=== PATIENT | female | born 1965 | race Caucasian/White ===

== ENCOUNTER 2024-02-17 15:10 | Outpatient (AMB) | payer OTHER, SELFPAY ==
--- NOTE | 2024-02-17 15:13 | A.OFFPC_ITS ---
Vital Signs 02/17/24 15:24 Height 5 ft 10 in Weight 230 lb 4 oz BMI 33.0 BP 112/68 Blood Pressure Location Rt brachial Position Sitting Respiration 16 Pulse 63 Pulse Source Pulse Oximeter Temp 98.2 F Temp Source Oral Pulse Oximetry (%) 97 Oxygen Delivery Method Room Air Intake Visit Reasons: Establish Care Intake Note: patient here for new patient visit she just moved out here. 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 Required: No Is last menstrual period known: No Post menopausal: No Patient : No Allergies tetracycline Allergy (Severe, Verified 02/17/24 15:19) Anaphylaxis oxycodone Adverse Reaction (Intermediate, Verified 02/17/24 15:19) Dizziness Tobacco use date assessed: 02/17/24 Dental Screening Dental Screen Date: 02/17/24 Did you have a dental visit in the last 12 months?: Yes Did you have a dental problem in the last 6 months where you did not have access to dental care?: No Was dental information given to patient?: Patient has dentist HPI HPI Comments History of Present Illness Details This is a 58-year-old female with a past medical history of postsurgical hypothyroidism, decreased white blood cell count and prediabetes presenting to [facility]. 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 She moved to [place], [place] from [facility] last fall with her who is in the . Hypothyroidism-patient had thyroidectomy in 2020 for nodules. She does not have a history of thyroid cancer. She has on Synthroid a 125 mcg once daily. Obt aining the prescription in [place] was never a problem. She could not tolerate levothyroxine because it caused fluctuating TSH levels. She needs a prior authorization for Synthroid. TSH 0.072-reviewed on patient's portal from another office recently. Decreased WBC-her provider in [place] said she has had mildly decreased white blood cells for awhile, and she was not concerned about it. Recent WBC 3.4. She notes she has gotten pneumonia about once a year when she was living in [place]. She says this is because of the tendency of all the air pollution to settle in this area. She did not have pneumonia since relocating to [place] last year. No other infections. Prediabetes-patient endorses a history of this. Recent fasting glucose 105. [facility] Medical History (Updated 02/17/24 @ 16:16 by AMANUEL Vicente) History of pneumonia Post-surgical hypothyroidism WBC decreased Prediabetes Surgical History (Updated 02/17/24 @ 16:16 by AMANUEL Vicente) History of thyroidectomy History of knee surgery Family History (Updated 02/17/24 @ 15:34 by Caroline Garsia) Father Diabetes Cardiovascular disease Family/Other Diabetes High blood pressure Paternal Grandmother Thyroid disease Social History Housing: House Patient Tobacco Use Status: Never used Tobacco e-Cigarette/Vaping Use: Never Used Second Hand Smoke Exposure: No Patient : No service: No Current occupational status: employed 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 1. Little interest or pleasure in doing things: not at all 2. Feeling down, depressed, or hopeless: not at all 3. Trouble falling or staying asleep, or sleeping too much: not at all 4. Feeling tired or having little energy: not at all 5. Poor appetite or overeating: not at all 6. Feeling bad about yourself - or that you are a failure or have let yourself or your family down: not at all 7. Trouble concentrating on things, such as reading the newspaper or watching television: not at all 8. Moving or speaking so slowly that other people could have noticed. Or the opposite - being so fidgety or restless that you have been moving around a lot more than usual: not at all 9. Thoughts that you would be better off or of hurting yourself in some way: not at all Total score: 0 Depression Screening Interpretation: Negative Depression Screening Done: Yes 89405 - PHQ-9 Billing: Yes Source: Developed by Drs. Carmelo Rodriguez, Bethany Gomez, Gilmer Bhagat and colleagues, with an educational cameron from [employer]. Thrive Questionnaire Date Thrive assessed: 02/17/24 I am a: Patient What is your living situation today?: I have a steady place to live Within the past 12 months, did the food you bought not last and you didn't have the money to get more?: Never true Within the past 12 months, did you worry whether your food would run out before you got money to buy more?: Never true Do you have trouble paying for medicines?: No Do you have trouble getting transportation to medical appointments?: No Do you have trouble paying your heating and electricity bill?: No Do you have trouble taking care of your child, family member or friend?: No Do you have trouble with day-to-day activities such as bathing, preparing meals, shopping, managing finances, etc.?: No Are you currently unemployed and looking for a job?: No Are you interested in more education?: No Please select the resources that you would like help with: None Currently or been in a relationship where the following occur: no concerns reported THRIVE Score: 0 AUDIT C Alcohol Use Questionnaire (AUDIT-C) 1. How often do you have a drink containing alcohol?: 2-4 times a month 2. How many drinks containing alcohol do you have on a typical day when you are drinking?: 1 or 2 3. How often do you have six or more drinks on one occasion?: Never Total Score: 2 ADIA-7 AMB Questionnaire ADIA-7 Date ADIA - 7 assessed: 02/17/24 Feeling nervous, anxious, or on edge: 0 = Not at all Not being able to stop or control worryin = Not at all Worrying too much about different things: 0 = Not at all Trouble relaxin = Not at all Being so restless that it is hard to sit still: 0 = Not at all Becoming easily annoyed or irritable: 0 = Not at all Feeling afraid as if something awful might happen: 0 = Not at all Total ADIA-7 score (0-4 normal; 5-9 mild; 10-14 moderate; 15-21 severe): 0 Source: Developed by Drs. Carmelo Rodriguez, Bethany Gomez, Gilmer Bhagat and colleagues, with an educational cameron from [employer]. ADIA-7 Assessment Billing ADIA-7 Assessment Tool: ADIA-7 Assessment 86828 Review of Systems Const Details: Constitutional: No unexplained weight loss, fever, chills, fatigue Respiratory: No shortness of breath, cough or sputum production. Cardiovascular: No chest pain, chest pressure or chest discomfort. Gastrointestinal: No anorexia, nausea, vomiting or diarrhea. No abdominal pain or blood in stool. Neurologic: No headache Physical exam (Primary Care) Vital Signs: Last Vital Signs Temp 98.2 F 02/17/24 15:24 Pulse 63 02/17/24 15:24 Resp 16 02/17/24 15:24 BP 112/68 02/17/24 15:24 Pulse Ox 97 02/17/24 15:24 Oxygen Delivery Method Room Air 02/17/24 15:24 BMI result Body Mass Index 33.0 Tobacco/Smoking Status: Tobacco use Status Tobacco use date assessed 02/17/24 02/17/24 15:22 Patient Tobacco Use Status Never used Tobacco 02/17/24 15:22 e-Cigarette/Vaping Use Never Used 02/17/24 15:22 Depression Screening Interpretation: Negative Currently or been in a relationship where the following occur: no concerns reported Const Other: Constitutional: Alert, in no distress. Respiratory: Clear to auscultation. Cardiovascular: S1 S2 regular. No murmurs. Extremities: Warm and well perfused. No clubbing, cyanosis or edema. Psychiatric: Normal mood and affect Assessment and Plan Assessment & Plan (1) Post-surgical hypothyroidism: Code(s): E89.0 - Postprocedural hypothyroidism Plan: Recent TSH wnl. Continue Synthroid. Will proceed with PA for brand name only, medically necessary. (2) WBC decreased: Code(s): D72.819 - Decreased white blood cell count, unspecified Plan: Repeat CBC w/ diff. If persistent then refer to hematology. (3) Prediabetes: Code(s): R73.03 - Prediabetes Plan: She is going to try to lose weight. Declines meds for this. Check hemoglobin a1c. (4) History of pneumonia: Code(s): Z87.01 - Personal history of pneumonia (recurrent) Plan: Monitor for recurrence. May have been due to environmental exposure in [place]. Will look into prevnar-20 coverage. Orders: Orders Hemoglobin A1c Today D72.819 - Decreased white blood cell count, unspecified, R73.03 - Prediabetes Complete Blood Count Man Dif Today D72.819 - Decreased white blood cell count, unspecified, R73.03 - Prediabetes Medications: New Synthroid (levothyroxine) Brand name Synthroid 125 mcg PO QAM 90 tabs 3RF NS Coding Level of Care Code New Pt Level 4 (59024) Complex EM visit Add On G2211 Diagnoses Post-surgical hypothyroidism E89.0 WBC decreased D72.819 Prediabetes R73.03 History of pneumonia Z87.01 Additional Codes ADIA-7 Assessment Billing - ADIA-7 Assessment Tool: ADIA-7 Assessment 99508 ([id number])
[2024-02-17 15:24] VITALS: BP 112/68; PULSE 63; RESP 16; TEMP 36.8; O2SAT 97; BMI 33.0
== END 2024-02-17 16:07 | disposition home or self-care (01) ==
PROVIDERS: PCP Physician Assistant Medical; Visit Provider Physician Assistant Medical
DX: E89.0 Postprocedural hypothyroidism (principal); D72.819 Decreased white blood cell count, unspecified; R73.03 Prediabetes; Z87.01 Personal history of pneumonia (recurrent)
CPT/HCPCS: 99204

== ENCOUNTER 2024-05-22 16:08 | Outpatient (REF) | payer OTHER, SELFPAY ==
[2024-05-22 17:45] LABS: Baso%MD 0.9 %; Eos%MD 6.9 %; Hematocrit 41.5 % (37.0-47.0); Hemoglobin 13.5 g/dl (12.0-16.0); IG%MD 0.2 %; Lymph%MD 31.8 %; Mean Corpuscular HGB Conc 32.5 g/dl (31.0-35.0); Mean Corpuscular Hemoglobin 29.2 pg (27.0-33.0); Mean Corpuscular Volume 89.6 fL (80.0-98.0); Mean Platelet Volume 10.8 fL (9.4-12.3); Mono%MD 11.1 %; Neut%MD 49.1 %; Platelet Count 230 X10*3/uL (160-400); Red Blood Count 4.63 X10*6/uL (4.20-5.50); Red Cell Distribution Width 13.9 % (11.0-16.0); White Blood Count 5.5 X10*3/uL (4.8-10.8)
[2024-05-22 19:00] LABS: Band Neutrophils Percent 4 % (3-5); Basophils Abs Manual 0.1 X10*3/uL (0.0-0.2); Basophils Percent Manual 1 % (0-2); Eosinophils Absolute Manual 0.2 X10*3/uL (0.0-0.4); Eosinophils Percent Manual 3 % (0-4); Lymphocytes Absolute Manual 1.7 X10*3/uL (1.2-4.9); Lymphocytes Percent Manual 30 % (20-40); Monocytes Absolute Manual 0.4 X10*3/uL (0.1-1.2); Monocytes Percent Manual 8 % (2-11); Neutrophils Absolute Manual 3.2 X10*3/uL (2.0-8.3); Neutrophils Percent Manual 54 % (45-73)
[2024-05-22 19:01] LABS: Platelet Estimate NORMAL (NORMAL); Platelet Morphology Comment NORMAL; RBC Morphology NORMAL
[2024-05-23 04:11] LABS: Estimated Average Glucose 123 mg/dL; Hemoglobin A1c % 5.9 % (<6.0)
== END 2024-05-22 16:09 | disposition home or self-care (01) ==
LOC: HO.LAB 16:08
PROVIDERS: PCP Physician Assistant Medical; Visit Provider Physician Assistant Medical
DX: D72.819 Decreased white blood cell count, unspecified (principal); R73.03 Prediabetes
CPT/HCPCS: 36415; 83036; 85007; 85027

== ENCOUNTER 2024-05-28 08:31 | Outpatient (AMB) | payer OTHER, SELFPAY ==
--- NOTE | 2024-05-28 08:33 | MHC.PC.OV ---
Vital Signs 05/28/24 08:36 Height 5 ft 10 in Weight 234 lb BMI 33.6 BP 112/68 Blood Pressure Location Rt brachial Position Sitting Pulse 88 Pulse Source Pulse Oximeter Pulse Oximetry (%) 96 Oxygen Delivery Method Room Air Intake Visit Reasons: Annual PE Intake Note: Physical Data Collection Technician Required: No Allergies tetracycline Allergy (Severe, Verified 05/28/24 08:33) Anaphylaxis oxycodone Adverse Reaction (Intermediate, Verified 05/28/24 08:33) Dizziness Tobacco use date assessed: 05/28/24 Dental Screening Dental Screen Date: 02/17/24 HPI HPI Comments History of Present Illness Details This is a 59-year-old female with a past medical history of postsurgical hypothyroidism, decreased white blood cell count and prediabetes presenting for a physical exam. 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 She moved to [place], [place] from [facility] Fall 2022 with her who is in the . Hypothyroidism-patient had thyroidectomy in 2020 for nodules. She does not have a history of thyroid cancer. She has on Synthroid a 125 mcg once daily. She cannot tolerate levothyroxine because it caused fluctuating TSH levels. TSH 0.072-reviewed on patient's portal from another office recently. Decreased WBC-her provider in [place] said she has had mildly decreased white blood cells for awhile, and she was not concerned about it. Her recent CBC w/ diff is normal. We will continue to monitor this with her routine blood work. Prediabetes-patient endorses a history of this for the past 10 years. Hga1c is 5.9%. Patient admits she is not exercising regularly or watching her diet carefully. We discussed options. She wants to avoid medications for now. She is referred to the dietitian. She declines colonoscopy. She has never had one. She has a Cologuard kit. Patient has been dealing with menopause symptoms including fatigue and hot flashes. She does not have a gynecology provider in [place]. She is referred to Dr. Lorenzo. The patient will get her flu shot at her pharmacy. She also plans to get the Shingles vaccine. ROS: Constitutional: No unexplained weight loss, fevers or chills. Eyes: No vision changes, blurry vision, double vision, eye pain, eye redness, eye discharge. ENT: No hearing loss, sneezing, congestion, runny nose or sore throat. Respiratory: No shortness of breath, cough or sputum production. Cardiovascular: No chest pain, chest pressure or chest discomfort. No palpitations or pedal edema. Gastrointestinal: No anorexia, nausea, vomiting or diarrhea. No abdominal pain or blood in stool. Genitourinary: No dysuria, hematuria, urinary frequency. Neurologic: No headache, dizziness, syncope, unilateral weakness, ataxia, numbness or tingling in the extremities. Musculoskeletal: No muscle pain, back pain, joint pain or swelling. Hematologic/Lymphatics: No bleeding or bruising. No painful lymph nodes. Skin: She has rough, dry patches on her forearms. She will try exfoliating and applying an emollient twice a day. Endocrine: No cold or heat intolerance. No polyuria or polydipsia. Psychiatric: No depression or anxiety. No SI/HI. Physical exam: Constitutional: Alert, in no distress. Head: Normocephalic. Eyes: Pupils are equal, round and reactive to light. Extraocular muscles intact. Ear, Nose and Throat: Canals clear. TMs normal. Normal nasal mucosa. No nasal discharge. No oral lesions. Neck: Supple, Full range of motion. No lymphadenopathy. Surgical scar from thyroidectomy noted. Respiratory: Clear to auscultation. Cardiovascular: S1 S2 regular. No murmurs. Gastrointestinal: Abdomen soft, non-tender, non-distended. Normal bowel sounds. No palpable masses. Neurologic: No focal neurological deficits. Symmetric patellar reflexes. Moves all extremities spontaneously. Sensation intact bilaterally. Skin: Dry, rough patches on forearms. No erythema. Musculoskeletal: No gross deformities. Normal range of motion. Extremities: Warm and well perfused. No clubbing, cyanosis or edema. 3+ peripheral pulses bilaterally. Psychiatric: Normal mood and affect [facility] Medical History (Updated 05/28/24 @ 13:45 by AMANUEL Vicente) Menopausal symptoms History of pneumonia Post-surgical hypothyroidism WBC decreased Prediabetes Surgical History (Updated 02/17/24 @ 16:16 by AMANUEL Vicente) History of thyroidectomy History of knee surgery Family History (Updated 02/17/24 @ 15:34 by Caroline Garsia MA) Father Diabetes Cardiovascular disease Family/Other Diabetes High blood pressure Paternal Grandmother Thyroid disease Social History Housing: House Patient Tobacco Use Status: Never used Tobacco e-Cigarette/Vaping Use: Never Used Second Hand Smoke Exposure: No service: No Current occupational status: employed 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 Carmelo Rodriguez, Bethany Gomez, Gilmer Bhagat and colleagues, with an educational cameron from [employer] Physical exam (Primary Care) Vital Signs: Last Vital Signs Pulse 88 05/28/24 08:36 BP 112/68 05/28/24 08:36 Pulse Ox 96 05/28/24 08:36 Oxygen Delivery Method Room Air 05/28/24 08:36 BMI result Body Mass Index 33.6 Tobacco/Smoking Status: Tobacco use Status Tobacco use date assessed 05/28/24 05/28/24 08:35 Patient Tobacco Use Status Never used Tobacco 05/28/24 08:35 e-Cigarette/Vaping Use Never Used 05/28/24 08:35 Thrive Assessment: Date of Thrive Assessment Date Thrive assessed 02/17/24 05/28/24 08:35 Coding Level of Care Code Est Pt Prev Care 40-64y(23245) Diagnoses Routine physical examination Z00.00 Menopausal symptoms N95.1 Prediabetes R73.03 Other decreased white blood cell (WBC) count D72.818 Leukopenia type: other Post-surgical hypothyroidism E89.0 Assessment & Plan Assessment & Plan (1) Routine physical examination: Code(s): Z00.00 - Encounter for general adult medical examination without abnormal findings (2) Menopausal symptoms: Code(s): N95.1 - Menopausal and female climacteric states Category: Medical (3) Prediabetes: Code(s): R73.03 - Prediabetes Category: Medical (4) WBC decreased: Code(s): D72.819 - Decreased white blood cell count, unspecified Category: Medical Qualifiers: Leukopenia type: other Qualified Code(s): D72.818 - Other decreased white blood cell count (5) Post-surgical hypothyroidism: Code(s): E89.0 - Postprocedural hypothyroidism Category: Medical Plan Patient is seen today for a routine physical. As part of this visit we reviewed the following issues, which are considered and essential part of preventative health in this age group: - Breast Cancer screening - Annual Film Recordist exam - Screening for colon cancer - Blood pressure screening annually - Cholesterol screening - Osteoporosis prevention including calcium/vitamin D intake, weight bearing exercise & smoking cessation - Nutritional and exercise counseling - Counseling of injury prevention including fire prevention, smoke alarms and seat belt usage - Screening for depression - Education about skin cancer - Recommendations about immunizations - Recommendation of an eye exam - Screening for substance abuse Follow up in 1 year for annual physical exam.. Orders: Orders MM screening mammo BI Today Z12.31 - Encounter for screening mammogram for malignant neoplasm of breast Referrals DIRECTOR GLOBAL STRATE[employer]IC PUBLISHER SALES Referral N95.1 - Menopausal and female climacteric states [place] [employer] Guide Nutrition Referral R73.03 - Prediabetes Patient Instructions: Dr. Lorenzo
[2024-05-28 08:36] VITALS: BP 112/68; PULSE 88; O2SAT 96; BMI 33.6
== END 2024-05-28 09:12 | disposition home or self-care (01) ==
PROVIDERS: PCP Physician Assistant Medical; Visit Provider Physician Assistant Medical
DX: Z00.00 Encounter for general adult medical examination without abnormal findings (principal); N95.1 Menopausal and female climacteric states; R73.03 Prediabetes; D72.818 Other decreased white blood cell count; E89.0 Postprocedural hypothyroidism

== ENCOUNTER → 2024-05-28 08:31 | Outpatient (BNVA) | payer OTHER, SELFPAY | PROVIDERS: PCP Physician Assistant Medical; Visit Provider Physician Assistant Medical ==

== ENCOUNTER 2024-06-22 07:44 | Outpatient (REF) | payer OTHER, SELFPAY ==
--- NOTE | ~2024-06-22 | MM_ITS ---
EXAMINATION: MM SCREENING DIGITAL BREAST TOMOSYNTHESIS, BILATERAL CLINICAL INFORMATION: Screening. Asymptomatic. COMPARISON: Mammography: No prior imaging available for comparison. TECHNIQUE: Digital breast mammography with tomosynthesis is performed in both the craniocaudal and mediolateral oblique views along with computer-aided detection (CAD). FINDINGS: The breasts are heterogeneously dense, which may obscure small masses (ACR BI-RADS breast composition Category c). There are no significant masses, abnormal calcifications, or other abnormalities. MM/MM tomosynthesis screening BI IMPRESSION: No mammographic evidence of malignancy. ASSESSMENT: BI-RADS BI-RADS 1 - Negative RECOMMENDATION: Routine annual mammography screening. 1 year F/U This examination should not preclude the clinical evaluation of a suspicious palpable abnormality. This patient's information was entered into a reminder system with a target due date for their next mammogram. Electronically signed by: Brit Bunn DO 06/30/2024 08:48 AM [facility]
== END 2024-06-22 07:45 | disposition home or self-care (01) ==
LOC: HO.MAMMO 07:44
PROVIDERS: PCP Physician Assistant Medical; Visit Provider Physician Assistant Medical
DX: Z12.31 Encounter for screening mammogram for malignant neoplasm of breast (principal)
CPT/HCPCS: 77063; 77067

== ENCOUNTER → 2024-06-22 07:45 | Outpatient (BNV) | payer OTHER, SELFPAY | PROVIDERS: PCP Physician Assistant Medical; Visit Provider Internal Medicine | DX: Z12.31 Encounter for screening mammogram for malignant neoplasm of breast (principal) | CPT/HCPCS: 77063; 77067 ==

== ENCOUNTER 2024-07-02 08:30 | Outpatient (AMB) | payer OTHER, SELFPAY ==
--- NOTE | 2024-07-02 08:40 | A.OFFVIS_ITS ---
VS Expanded 07/02/24 08:41 07/02/24 08:49 Height 5 ft 10 in 5 ft 10 in Weight 231 lb 7.766 oz 231 lb BMI 33.2 33.1 Intake Visit Reasons: Pre DM/LVM Allergies tetracycline Allergy (Severe, Verified 05/28/24 08:33) Anaphylaxis oxycodone Adverse Reaction (Intermediate, Verified 05/28/24 08:33) Dizziness Nutrition Presentation Details: Pt presents for MNT for Pre DM food frequency fish: not including fruits: 2-3 /d protein : 10 oz/d fluids: 24 oz/d starches > 25/day physical activity: sedentary etoh/smoking--- BS Monitoring Most Recent Diabetes Results: No Data to Display ZQM-Sbcsuyt-Kf.Jeor Equation Height: 5 ft 10 in Weight: 231 lb Resting Metabolic Rate: 1706.72 Calculated Activity Level: Sedentary Calories Needed to Maintain Weight: 2048.06 Diagnosis Nutrition problem #1: food nutri know defi As related to (etiology) #1: diagnosis As evidenced by (sign/symptom) #1: knowledge deficit of diet [facility] Medical History (Updated 05/28/24 @ 13:45 by AMANUEL Vicente) Menopausal symptoms History of pneumonia Post-surgical hypothyroidism WBC decreased Prediabetes Surgical History (Updated 02/17/24 @ 16:16 by AMANUEL Vicente) History of thyroidectomy History of knee surgery Family History (Updated 02/17/24 @ 15:34 by Caroline Garsia MA) Father Diabetes Cardiovascular disease Family/Other Diabetes High blood pressure Paternal Grandmother Thyroid disease Social History Housing: House Patient Tobacco Use Status: Never used Tobacco e-Cigarette/Vaping Use: Never Used Second Hand Smoke Exposure: No service: No Current occupational status: employed 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 Current occupational exposures/hazards: No Cognitive needs: No Hearing needs: No Vision needs: Yes Assessment & Plan Assessment & Plan (1) Prediabetes: Code(s): R73.03 - Prediabetes Category: Medical Plan: Wt: 105 Kg ( 07/19 ) Est kcal needs as per MSJ: 2100 (40% carb, 30% protein/fat) Est fluid needs as per 25-30 ml/d: 3200 Est prot per day as per 1 g/kg bw: 105 Recommend fiber intake : 8-10 g per day and gradually increase to 25-28 g per day for women and 35-38 g for men or as tolerated Recommend sodium intake per day : less than 2300 mg Educated patient on: ( R = reviewed V = verbalizes understanding N/R = needs review N/A = not applicable * Food sources of carbohydrate, adequate serving sizes and its role in various health conditions: R * Differences between complex carbohydrates a simple carbohydrates, role of fiber in diet: R V N/R * Lean protein sources of foods: R V NR * Differences between types of fats and role in diet (mono on saturated fat fatty acids, saturated fatty acids, trans fats): R V N/R * Food sources of sodium in salt and healthy modifications for heart health in kidney health: R V R/V * Vitamins and minerals: R V N/R * Healthy plate method concept: R * Physical activity: Benefits a precaution: R V N/R * Hypoglycemia protocol (rule of 15): R V N/R * Dietary prevention of Hyperglycemia: R Patient Instructions: Work on reducing total carb to less than 80 g at meals following healthy plate method keep hydrated by having water/fruit/herb infused water with meals/snacks practice mindful eating Coding Level of Care Code Nutr Indiv Intake (30372) Diagnoses Prediabetes R73.03 Time Spent (min) 30
[2024-07-02 08:41] VITALS: BMI 33.2
[2024-07-02 08:49] VITALS: BMI 33.1
== END 2024-07-02 09:27 | disposition home or self-care (01) ==
LOC: HO.ENCR 08:31
PROVIDERS: PCP Physician Assistant Medical; Visit Provider Dietitian, Registered
DX: R73.03 Prediabetes (principal)

== ENCOUNTER → 2024-07-02 08:30 | Outpatient (BNVA) | payer OTHER, SELFPAY | PROVIDERS: PCP Physician Assistant Medical; Visit Provider Dietitian, Registered | DX: R73.03 Prediabetes (principal); Z71.3 Dietary counseling and surveillance | CPT/HCPCS: 97802 ==

== ENCOUNTER 2024-07-06 15:06 | Outpatient (AMB) | payer OTHER, SELFPAY ==
--- NOTE | 2024-07-06 15:12 | A.OFFPC_ITS ---
Vital Signs 07/06/24 15:17 Height 5 ft 10 in Weight 233 lb 4 oz BMI 33.5 BP 108/66 Blood Pressure Location Rt brachial Position Sitting Pulse 79 Pulse Source Pulse Oximeter Pulse Oximetry (%) 99 Oxygen Delivery Method Room Air Intake Visit Reasons: right hand thumb pain Intake Note: Right thumb pain. Allergies tetracycline Allergy (Severe, Verified 07/06/24 15:17) Anaphylaxis oxycodone Adverse Reaction (Intermediate, Verified 07/06/24 15:17) Dizziness Tobacco use date assessed: 05/28/24 Dental Screening Dental Screen Date: 02/17/24 HPI HPI Comments History of Present Illness Details This is a 59-year-old female with a past medical history of postsurgical hypothyroidism and prediabetes presenting for evaluation of right upper extremity pain. She has had intermittent pain at the base of her right hand and wrist for the past year. It is described as aching. It has gotten worse over time. Last week she filled out a job application, and after all of the writing she had 8/10 pain for the next few days associated with swelling. There is no discoloration or warmth. No numbness or tingling. No history of trauma. She took ibuprofen and iced which seemed to help a little bit, but symptoms did not go away completely. She is right-hand dominant. ROS: Constitutional: No fevers or chills. Musculoskeletal: No neck pain or radiating pain Neurologic: No numbness or tingling Skin: No rash, redness or bruising. Physical exam: Hands: There is mild edema of the right thenar eminence and CMC joint of the right thumb. The right thumb is tender from this CMC joint down to the wrist. Handgrip strength 5/5 bilaterally. Hands are neurovascularly intact. There is right wrist pain with abduction. [facility], LAT[facility] Medical History (Updated 07/06/24 @ 15:39 by AMANUEL Vicente) Right hand pain Right wrist pain Menopausal symptoms History of pneumonia Post-surgical hypothyroidism WBC decreased Prediabetes Surgical History (Updated 02/17/24 @ 16:16 by AMANUEL Vicente) History of thyroidectomy History of knee surgery Family History (Updated 02/17/24 @ 15:34 by Caroline Garsia MA) Father Diabetes Cardiovascular disease Family/Other Diabetes High blood pressure Paternal Grandmother Thyroid disease Social History Housing: House Patient Tobacco Use Status: Never used Tobacco e-Cigarette/Vaping Use: Never Used Second Hand Smoke Exposure: No service: No Current occupational status: employed 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 1. Little interest or pleasure in doing things: not at all 2. Feeling down, depressed, or hopeless: not at all 3. Trouble falling or staying asleep, or sleeping too much: not at all 4. Feeling tired or having little energy: not at all 5. Poor appetite or overeating: not at all 6. Feeling bad about yourself - or that you are a failure or have let yourself or your family down: not at all 7. Trouble concentrating on things, such as reading the newspaper or watching television: not at all 8. Moving or speaking so slowly that other people could have noticed. Or the opposite - being so fidgety or restless that you have been moving around a lot more than usual: not at all 9. Thoughts that you would be better off or of hurting yourself in some way: not at all Total score: 0 Source: Developed by Drs. Carmelo Rodriguez, Bethany Gomez, Gilmer Bhagat and colleagues, with an educational cameron from [employer]. Thrive Questionnaire Date Thrive assessed: 02/17/24 I am a: Patient What is your living situation today?: I have a steady place to live Within the past 12 months, did the food you bought not last and you didn't have the money to get more?: Never true Within the past 12 months, did you worry whether your food would run out before you got money to buy more?: Never true Do you have trouble paying for medicines?: No Do you have trouble getting transportation to medical appointments?: No Do you have trouble paying your heating and electricity bill?: No Do you have trouble taking care of your child, family member or friend?: No Do you have trouble with day-to-day activities such as bathing, preparing meals, shopping, managing finances, etc.?: No Are you currently unemployed and looking for a job?: No Are you interested in more education?: No Please select the resources that you would like help with: None Currently or been in a relationship where the following occur: No concerns reported THRIVE Score: 0 AUDIT C Alcohol Use Questionnaire (AUDIT-C) 1. How often do you have a drink containing alcohol?: 2-4 times a month 2. How many drinks containing alcohol do you have on a typical day when you are drinking?: 1 or 2 3. How often do you have six or more drinks on one occasion?: Never Total Score: 2 ADIA-7 AMB Questionnaire ADIA-7 Date ADIA - 7 assessed: 02/17/24 Feeling nervous, anxious, or on edge: 0 = Not at all Not being able to stop or control worryin = Not at all Worrying too much about different things: 0 = Not at all Trouble relaxin = Not at all Being so restless that it is hard to sit still: 0 = Not at all Becoming easily annoyed or irritable: 0 = Not at all Feeling afraid as if something awful might happen: 0 = Not at all Total ADIA-7 score (0-4 normal; 5-9 mild; 10-14 moderate; 15-21 severe): 0 Source: Developed by Drs. Carmelo Rodriguez, Bethany Gomez, Gilmer Bhagat and colleagues, with an educational cameron from [employer]. Physical exam (Primary Care) Vital Signs: Last Vital Signs Pulse 79 07/06/24 15:17 BP 108/66 07/06/24 15:17 Pulse Ox 99 07/06/24 15:17 Oxygen Delivery Method Room Air 07/06/24 15:17 BMI result Body Mass Index 33.5 Tobacco/Smoking Status: Tobacco use Status Tobacco use date assessed 05/28/24 07/06/24 15:14 Patient Tobacco Use Status Never used Tobacco 07/06/24 15:14 e-Cigarette/Vaping Use Never Used 07/06/24 15:14 PHQ-9: PHQ-9 Score PHQ-9: Total score 0 07/06/24 15:14 Thrive Assessment: Date of Thrive Assessment Date Thrive assessed 02/17/24 07/06/24 15:14 Currently or been in a relationship where the following occur: No concerns reported Coding Level of Care Code Est Pt Level 4 (92477) Complex EM visit Add On G2211 Diagnoses Right hand pain M79.641 Right wrist pain M25.531 Assessment & Plan Assessment & Plan (1) Right hand pain: Code(s): M79.641 - Pain in right hand Category: Medical (2) Right wrist pain: Code(s): M25.531 - Pain in right wrist Category: Medical Plan Differential includes osteoarthritis and de Quervain tenosynovitis. Ordered x-rays of the right wrist and hand. For acute symptoms today she can take naproxen 500 mg twice daily with food for 5-10 days. Avoid other NSAIDs. After she finishes naproxen or if she decides not to take it she can use topical Voltaren gel as needed for pain. We discussed referral to the hand surgeon once her results are back. Orders: Orders XR wrist RT min 3V Today M25.531 - Pain in right wrist, M79.641 - Pain in right hand XR hand RT min 3V Today M25.531 - Pain in right wrist, M79.641 - Pain in right hand Medications: New naproxen 500 mg PO BID PRN 20 tabs 0RF pain diclofenac sodium 1% (Voltaren Arthritis Pain) apply 4 g to each affected area up to 4 times daily; maximum dose per joint: 16 g/day; maximum total body dose (all combined joints): 32 g/day 100 grams 2RF
[2024-07-06 15:17] VITALS: BP 108/66; PULSE 79; O2SAT 99; BMI 33.5
== END 2024-07-06 15:50 | disposition home or self-care (01) ==
PROVIDERS: PCP Physician Assistant Medical; Visit Provider Physician Assistant Medical
DX: M79.641 Pain in right hand (principal); M25.531 Pain in right wrist

== ENCOUNTER 2024-07-06 15:06 | Outpatient (REF) | payer OTHER, SELFPAY ==
--- NOTE | ~2024-07-06 | XR_ITS ---
EXAMINATION: XR HAND/WRIST, RIGHT CLINICAL INFORMATION: Right hand pain COMPARISON: None available. TECHNIQUE: PA, lateral, and oblique views of the right hand and wrist. FINDINGS: No fracture or destructive process. There is advanced degenerative change seen at the first CMC joint and base of the second metacarpal. Carpal alignment is preserved. XR/XR hand wrist RT IMPRESSION: Arthritic change noted. No acute findings. Electronically signed by: Nicholas Chew MD 07/07/2024 10:22 AM JASMEET ARELLANO
== END 2024-07-06 15:07 | disposition home or self-care (01) ==
LOC: HO.HMGCX 15:06
PROVIDERS: PCP Physician Assistant Medical; Visit Provider Physician Assistant Medical
DX: M79.641 Pain in right hand (principal); M25.531 Pain in right wrist
CPT/HCPCS: 73110; 73130; 96127

== ENCOUNTER 2024-08-04 09:08 | Outpatient (AMB) | payer OTHER, SELFPAY ==
--- NOTE | 2024-08-04 09:11 | A.OFFVIS_ITS ---
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 Pt states she noticed it was becoming more prominent in June. Pt states she is having pain on the outer aspect of her thumb. Pt denies any injury, numbness, tingling, or locking of her fingers. Pt states she did buy a brace and uses it when she has pain. 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 The patient states that her pain has improved very significantly since making her appointment here, to the point where she experiences very minimal discomfort at baseline. The patient states she would like to start with occupational therapy for range of motion and strengthening of her hand, as she feels that given the fact that she has no pain at baseline she does not require any further intervention at this time. No other acute complaints or concerns at this time. No numbness or tingling of the right hand. [facility] Medical History (Updated 07/10/24 @ 13:49 by AMANUEL Vicente) Osteoarthritis of right hand Right hand pain Right wrist pain Menopausal symptoms History of pneumonia Post-surgical hypothyroidism WBC decreased Prediabetes Surgical History (Updated 02/17/24 @ 16:16 by AMANUEL Vicente) History of thyroidectomy History of knee surgery Family History (Updated 02/17/24 @ 15:34 by Caroline Garsia MA) Father Diabetes Cardiovascular disease Family/Other Diabetes High blood pressure Paternal Grandmother Thyroid disease Social History Housing: House Patient Tobacco Use Status: Never used Tobacco e-Cigarette/Vaping Use: Never Used Second Hand Smoke Exposure: No service: No Current occupational status: employed 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 Neuro: Normal sensation of the tips of all digits of the right hand at this time Vascular: Cap refill brisk Pain: Patient reports no tenderness to palpation about the CMC joint of the right thumb Positive CMC grind, mild Negative Therese on the right Range of motion testing of the right hand painless ROM: Patient is able to make a closed fist and extend all digits of the right hand fully and without difficulty Skin: No lacerations or abrasions. General: No ecchymosis, erythema, or evidence of infection. Psych: Appears grossly normal Affect normal Attitude cooperative Results Reviewed Results Reviewed: X-rays obtained in the office today and independently reviewed by me, Sergey Patiño PA-C, demonstrate [id number] degenerative changes of the CMC joint of the right thumb. Assessment & Plan Assessment & Plan (1) Osteoarthritis of right hand: Code(s): M19.041 - Primary osteoarthritis, right hand Category: Medical Plan 1. Basal joint arthritis of right thumb Patient is educated about this condition Patient is educated about the treatment options available At this time, patient feels that due to her near complete symptom resolution at this time, she would like to hold off on any injections or other invasive interventions Patient is educated on conservative pain management measures, such as rest, ice, elevation, [id number] pain medication as needed Patient is open to a referral to occupational therapy Patient was referred to OT for range of motion and strengthening of the right hand in the setting of basal joint arthritis Patient will follow-up as needed with any acute concerns Orders: Orders OT Evaluation and Treatment Today M19.041 - Primary osteoarthritis, right hand Coding Level of Care Code New Pt Level 3 (62437) Diagnoses Osteoarthritis of right hand M19.041
--- OUTSIDE RECORDS SUMMARY | 2024-08-05 19:19 | XMS_ITS | Continuity of Care Document ---
Author Name [facility] Organization [facility] Care Team Providers Care Net Making Supervisor Name Role Phone [facility] Unavailable Unavailable Problems Combined list of problems from Department of Defense and Veterans Affairs facilities. It does not include entries that were removed or entered in error. Problem Status Onset Date Problem Type Date of Resolution Comments Source tinnitus subjective Active Condition Do D visit for: screening exam malignant neoplasm breast Inactive Condition DoD vitamin D deficiency Active Condition DoD visit for: laboratory Inactive Condition DoD concussion Inactive Condition DoD visit for: administrative purpose Inactive Condition [facility] Anticipatory Guidance: Maintaining Healthy Weight Active Condition DoD joint stiffness of the knee Active Condition DoD nontoxic nodular goiter Active Condition [facility] patellar chondromalacia Active Condition DoD visit for: screening exam Inactive Condition [facility] laryngitis Inactive Condition DoD joint pain, localized in the knee Active Condition [facility] patellofemoral syndrome right Inactive Condition DoD skin symptoms Inactive Condition DoD astigmatism regular Active Condition Do D visit for: screening exam cardiovascular disorders Inactive Condition DoD nontoxic multinodular goiter Inactive Condition [facility] visit for: screening exam lipoid disorders Inactive Condition [facility] simple goiter Active Condition DoD Pustules Inactive Condition DoD tingling (paresthesia) Inactive Condition [facility] foot sprain Inactive Condition [facility] visit for: exam following treatment Inactive Condition [facility] visit for: screening exam pulmonary tuberculosis Inactive Condition [facility] visit for: screening exam for malignant neoplasm cervix Inactive Condition [facility] Physical Examination Inactive Condition DoD Need For Vaccination Against Influenza Inactive Condition DoD visit for: administrative purpose Inactive Condition Given test result within normal limit. DoD lentigo Active Condition DoD Cervix Sample Taken For Pap Smear Inactive Condition DoD Inquiry And Counseling: Travel Outside Of Insurance Network Inactive Condition DoD presbyopia Active Condition Undilated ocular health -- unremarkable, OU DoD eye pain Inactive Condition CORNEAL ABRASION R/O. OCUFLOX WILL BE GIVEN FOR POSSIBLE CONJUNCTIVITI S. DoD Need For Vaccination Hepatitis B Inactive Condition DoD Tetanus toxoid - need for vaccination Inactive Condition DoD Need For Vaccination Hepatitis A Inactive Condition DoD Medications Combined list of outpatient medications from Department of Defense and Veterans Affairs facilities.Medications provided include 1) outpatient medications from the last 15 months, and 2) patient-reported medications. Medication Details Route Status Patient Instructions Prescription Expires Prescription Number Last Dispense Date Ordering Provider Order Date Order Qty Source levothyroxi ne 50 mcg oral tablet levothyr oxine 50 mcg oral tablet Start Date: 08/04/19 Status: Ordered Ordered No Facilit y Access Allergies, Adverse Reactions, Alerts Combined list of allergies from Department of Defense and Veterans Affairs facilities. It does not include entries that were removed or entered in error. Substance Category Reaction Severity Reaction type Status Date Reported Comments Source OXYCODONE Drug allergy (disorder) Unknown active 3 Adrianna [facility] MOHAN Lomeli oxyCODONE Propensity to adverse reactions to substance Unknown Active Reaction( s): Unknown [facility] TETRACYCLINE Drug allergy (disorder) Unknown active 3 Adrianna [facility] MOHAN Lomeli tetracycline Propensity to adverse reactions to substance Unknown Active Reaction( s): Unknown [facility] Immunizations Combined list of available immunizations from the Department of Defense and Veterans Affairs facilities. Immunization Series Date Given Administered By Site Reaction Lot Number CVX Code Drug Municipal Clerk Status Comments Source COVID Vaccine Moderna 2021 LAURENT Baer isaias, left (delt oid) [id number] Moderna US, Inc. complet ed COVID Vaccine Moderna 01/05/22 Given 0005C-B [facility] ([facility]) COVID Vaccine Moderna 2020 MICKIE Baer isaias, left (delt oid) [id number] Moderna [place], Inc. complet ed COVID Vaccine Moderna 06/29/21 Given 0005C-B [facility] ([facility]) influenza virus vaccine, inactivated 2020 MICKIE Baer isaias, right (delt oid) [id number] GlaxoSmithKli ne complet ed influenza virus vaccine, inactivat ed 06/13/21 Given 0005C-B [facility] ([facility]) COVID Vaccine Moderna 2020 LAURENT 207 complet ed COVID Vaccine Moderna 11/17/20 Recorded 0005A-B [facility] COVID Vaccine Moderna 2020 MICKIE Azevedo 207 complet ed COVID Vaccine Moderna 2/25/21 Recorded 0005C-B [facility] ([facility]) influenza virus vaccine,split 2013 zzRig Arm [id number] sanofi pasteur complet ed influenza virus vaccine,s plit 07/01/14 Given Ambulat ory Pharmac y influenza virus vaccine, split virus (incl. purified surface antigen)-reti red CODE 1 2013 NIDA FADY [id number] Sanofi Pasteur ([facility]) complet ed influenza virus vaccine, split virus (incl. purified surface antigen)- retired CODE DoD influenza virus vaccine,split 2013 [facility] Arm [id number] sanofi pasteur complet ed influenza virus vaccine,s plit 09/17/13 Given Ambulat ory Pharmac y influenza virus vaccine, split virus (incl. purified surface antigen)-reti red CODE 1 2013 CHERI MELENDEZ [id number] Sanofi Pasteur ([facility]) complet ed influenza virus vaccine, split virus (incl. purified surface antigen)- retired CODE DoD influenza virus vaccine, whole virus 2011 TRANSCR IBED 16 complet ed influenza virus vaccine, whole virus 07/18/12 Given Ambulat ory Pharmac y influenza virus vaccine, whole virus 0 2011 16 Transcribed (TRS) complet ed influenza virus vaccine, whole virus [facility] influenza virus vaccine, live 2010 [facility] [id number] [employer] complet ed influenza virus vaccine, live 07/03/11 Given Ambulat ory Pharmac y influenza virus vaccine, live, attenuated, for intranasal use 1 2010 PIC, VISIT [id number] Zimride, LOOK[employer]. (MED) complet ed influenza virus vaccine, live, attenuate d, for intranasa l use [facility] tuberculin purified protein derivative 2010 zzLef t Arm [id number] sanofi pasteur complet ed tuberculi n purified protein derivativ e 04/25/11 Given Ambulat ory Pharmac y tuberculin skin test; purified protein derivative solution, intradermal 1 2010 CINTHYA CALI [id number] Sanofi Pasteur ([facility]) complet ed tuberculi n skin test; purified protein derivativ e solution, intraderm al DoD influenza virus vaccine, live 2008 [id number] [employer] comple t ed influenza virus vaccine, live 05/26/09 Given Ambulat ory Pharmac y influenza virus vaccine, live, attenuated, for intranasal use 1 2008 PRESLEY CASTILLO [id number] 111 Zimride, Inc. (MED) complet ed influenza virus vaccine, live, attenuate d, for intranasa l use DoD influenza virus vaccine, live 2007 [id number] Med[employer] Inc comple t ed influenza virus vaccine, live 07/16/08 Given Ambulat ory Pharmac y influenza virus vaccine, live, attenuated, for intranasal use 1 2007 KHADIJAH MILLS [id number] 111 Zimride, Inc. (MED) complet ed influenza virus vaccine, live, attenuate d, for intranasa l use DoD poliovirus vaccine, inactivated 2006 [facility] Arm [id number] sanofi pasteur complet ed polioviru s vaccine, inactivat ed 08/13/07 Given Ambulat ory Pharmac y typhoid Vi capsular polysaccharid e vac 2006 [facility] Arm [id number] sanofi pasteur complet ed typhoid Vi capsular polysacch aride vac 08/13/07 Given Ambulat ory Pharmac y poliovirus vaccine, inactivated 1 2006 Unknown, Provider [id number] Sanofi Pasteur ([facility]) complet ed polioviru s vaccine, inactivat ed DoD typhoid Vi capsular polysaccharid e vaccine 1 2006 Unknown, Provider [id number] Sanofi Pasteur ([facility]) complet ed typhoid Vi capsular polysacch aride vaccine DoD influenza virus vaccine,split 2006 [facility] Arm [id number] [employer] complet ed influenza virus vaccine,s plit 07/08/07 Given Ambulat ory Pharmac y influenza virus vaccine, split virus (incl. purified surface antigen)-reti red CODE 1 2006 Unknown, Provider [id number] 15 Zimride, Inc. (MED) complet ed influenza virus vaccine, split virus (incl. purified surface antigen)- retired CODE DoD influenza virus vaccine,split 2005 [facility] Arm [id number] Unknown complet ed influenza virus vaccine,s plit 07/30/06 Given Ambulat ory Pharmac y influenza virus vaccine, split virus (incl. purified surface antigen)-reti red CODE 1 2005 FLORENCE ERICKSON [id number] 15 Other (OTH) complet ed influenza virus vaccine, split virus (incl. purified surface antigen)- retired CODE DoD Results Combined list of recent chemistry, hematology and other laboratory results from Department of Defense and Veterans Affairs, ranging from 15 months to all on record, depending upon the facility. Order Name Results Value Reference Range Date Interpretation Specimen Comments Source Molecula r Infectio us Disease Reason for Test? Diagnosi s (09/23/20 9:04 PM) 09/24 N [facility] Molecula r Infectio us Disease SARS-CoV-2 PCR Negative (09/23/20 9:04 PM) 09/24 N [facility] Hematolo gy WBC 6.22 10^3/uL 4.50 - 11.66958 09/24 N [facility] Hematolo gy RBC 4.810 10^6/uL 4.000 - 5.359974 09/24 N [facility] Hematolo gy Hemoglobin 14.00 g/dL 12.00 - 16.00 09/24 N [facility] Hematolo gy Hematocrit 43.8 % 36.0 - 46.0 09/24 N [facility] Hematolo gy MCV 91.1 fL 80.0 - 100.0 09/24 N [facility] Hematolo gy MCH 29.1 pg 28.0 - 34.0 09/24 N [facility] Hematolo gy MCHC 32.0 g/dL 32.0 - 36.0 09/24 N [facility] Hematolo gy RDW 13.3 % 12.0 - 14.6 09/24 N [facility] Hematolo gy Platelets 212.0 10^3/uL 150.0 - 450.0103 09/24 N [facility] Hematolo gy MPV 11.1 fL 6.8 - 10.2 09/24 H [facility] Coagulat ion D-Dimer (Quant) 0.74 mg/LFEU 0.19 - 0.49 09/24 H Interpretiv e Data: D dimer is now being performed quantitativ zafar and reported in mg/L. A negative D dimer (<0.5mg/L) can be used to exclude the diagnosis of venous thrombosis (VTE), deep vein thrombosis (DVT) and pulmonary embolism (PSE). Increase in D-dimer concentrati on observed with thromboembo lic events can be variable due to localizatio n, size and age of the thrombus. Therefore, a thromboembo lic event cannot be diagnosed with certainty on the basis of the reference range alone. Clinical correlation is essential. D-dimer may also be elevated for a variety of disorders including: advanced age, , coronary disease, cancer, liver disease, infection, inflammatio n, hematoma, DIC, trauma, post-surger y, diabetes, thrombolyti c therapy, stress and generalized hospitaliza tion. D-dimer levels may be decreased in patients on anticoagula nt therapy. [facility] Chemistr y Troponin-I <0.012 ng/mL 0.000 - 0.034 09/24 N Interpretiv e Data: CONSIDER A PATIENT'S SIGNS, SYMPTOMS, HISTORY AND RESULTS OF OTHER DIAGNOSTIC TESTS WHEN INTERPRETIN G TROPONIN RESULTS. NEGATIVE = 0.00 - 0.034 ng/mL BORDERLINE = 0.035 - 0.119ng/ml CONSISTENT WITH OR IS: >0.120 ng/mL [facility] Chemistr y Albumin 4.37 g/dL 3.50 - 5.00 09/24 N [facility] Chemistr y Glucose Lvl 92.90 mg/dL 72.00 - 99.00 09/24 N [facility] Chemistr y BUN 11.90 mg/dL 7.00 - 17.00 09/24 N [facility] Chemistr y Creatinine Level 0.76 mg/dL 0.52 - 1.04 09/24 N [facility] Chemistr y Sodium 142.10 mmol/L 137.00 - 145.00 09/24 N [facility] Chemistr y Potassium Lvl 3.64 mmol/L 3.40 - 5.00 09/24 N [facility] Chemistr y Chloride 102.6 mmol/L 98.0 - 107.0 09/24 N [facility] Chemistr y CO2 31.00 mmol/L 22.00 - 30.00 09/24 H [facility] Chemistr y AGAP 8 mmol/L 7 - 16 09/24 N [facility] Chemistr y Calcium 9.33 mg/dL 8.40 - 10.20 09/24 N [facility] Chemistr y Protein Total 7.70 g/dL 6.30 - 8.20 09/24 N [facility] Chemistr y Alk Phos 65.90 U/L 38.00 - 126.00 09/24 N [facility] Chemistr y AST 29.20 U/L 15.00 - 46.00 09/24 N [facility] Chemistr y ALT 30.70 U/L 13.00 - 69.00 09/24 N [facility] Chemistr y Bilirubin Direct 0.00 mg/dL 0.00 - 0.30 09/24 N [facility] Chemistr y Bilirubin Total 0.41 mg/dL 0.20 - 1.30 09/24 N [facility] Chemistr y Globulin 3.3 2.3 - 3.5 09/24 N [facility] Chemistr y A/G Ratio 1 % 1 - 1 09/24 N [facility] Hematolo gy Neutrophil % Auto 66.4 % 40.0 - 80.0 09/24 N [facility] Hematolo gy Lymphocyte % Auto 26.0 % 25.0 - 35.0 09/24 N [facility] Hematolo gy Monocyte % Auto 6.3 % 2.0 - 10.0 09/24 N [facility] Hematolo gy Eosinophil % Auto 0.6 % 0.0 - 5.0 09/24 N [facility] Hematolo gy Basophil % Auto 0.5 % 0.0 - 1.0 09/24 N [facility] Hematolo gy Imm. Granulocyt e % 0.20 % 0.00 - 0.90 09/24 N Interpretiv e Data: Immature granulocyte s (promyelocy temo, myelocytes, metamyelocy temo) >1% indicates the presences of immature white blood cells. Band forms are not included in the immature granulocyte count, but are included in the automated neutrophil count. [facility] Hematolo gy nRBC % Auto 0.00 % 0.00 - 0.20 09/24 N [facility] Hematolo gy Neutro Absolute 4.13 10^3/uL 1.80 - 7.42614 09/24 N [facility] Hematolo gy Lymph Absolute 1.62 10^3/uL 1.00 - 4.74596 09/24 N [facility] Hematolo gy Yell Absolute 0.39 10^3/uL 0.10 - 0.79900 09/24 N [facility] Hematolo gy Eos Absolute 0.04 10^3/uL 0.00 - 0.27208 09/24 N [facility] Hematolo gy Baso Absolute 0.03 10^3/uL 0.00 - 0.99373 09/24 N [facility] Hematolo gy Imm. Granulocyt e Absolute <0.03 10^3/uL 0.00 - 0.28652 09/24 N [facility] Hematolo gy nRBC Absolute 0.000 10^3/uL 0.000 - 0.698845 09/24 N [facility] Pharm[facility] Chemistr y eGFR Non-AA 88.3 mL/min/1 .73_m2 09/24 Interpretiv e Data: Interpretat ions: >=90 mL/min/1.73 m^2 = Normal 60-89 mL/min/1.73 m^2 = Mildly decreased GFR 30-59 mL/min/1.73 m^2 = Moderately decreased GFR 15-29 mL/min/1.73 m^2 = Severely decreased GFR < 15 mL/min/1.73 m^2 = Kidney failure This is an estimated glomerular filtration rate (eGFR) only. The value has been derived from the Chronic Kidney Disease - Epidemiolog y (CKD-Epi) Collaborati on Equation. The calculation automatical ly takes patient sex into account, but the Laboratory cannot automatical ly adjustment the formula for (AA) patients, therefore two GFR results are reported -- GFR-NON AA and GFR-AA. The result is standardize d to a person with a body surface area of 1.73m^2. As with all estimations , results may not be valid for certain sub-groups including: pediatric patients (0-17 years old), severely hypoalbumin emic patients, patients not in steady state (including acute renal failure), dialysis patients, and patients with atypical body habitus. Results will not be reported on patients under 18 years of age. Some pharmacolog ical therapeutic s are dosed based on older versions of the eGFR. Where deemed necessary, refer to Pharmacy for assistance or more information . [facility] Chemistr y eGFR AA 102.4 mL/min/1 .73_m2 09/24 Interpretiv e Data: Interpretat ions: >=90 mL/min/1.73 m^2 = Normal 60-89 mL/min/1.73 m^2 = Mildly decreased GFR 30-59 mL/min/1.73 m^2 = Moderately decreased GFR 15-29 mL/min/1.73 m^2 = Severely decreased GFR < 15 mL/min/1.73 m^2 = Kidney failure This is an estimated glomerular filtration rate (eGFR) only. The value has been derived from the Chronic Kidney Disease - Epidemiolog y (CKD-Epi) Collaborati on Equation. The calculation automatical ly takes patient sex into account, but the Laboratory cannot automatical ly adjustment the formula for (AA) patients, therefore two GFR results are reported -- GFR-NON AA and GFR-AA. The result is standardize d to a person with a body surface area of 1.73m^2. As with all estimations , results may not be valid for certain sub-groups including: pediatric patients (0-17 years old), severely hypoalbumin emic patients, patients not in steady state (including acute renal failure), dialysis patients, and patients with atypical body habitus. Results will not be reported on patients under 18 years of age. Some pharmacolog ical therapeutic s are dosed based on older versions of the eGFR. Where deemed necessary, refer to Pharmacy for assistance or more information . [facility] Molecula r Infectio us Disease Reason for Test? Screenin g (09/19/20 8:35 AM) 09/19 N [facility] Molecula r Infectio us Disease SARS-CoV-2 PCR Negative *NA* (09/19/20 8:35 AM) 09/19 [facility] Molecula r Infectio us Disease Reason for Test? Screenin g ( 0 10:29 AM) 07/18 N [facility] Molecula r Infectio us Disease SARS-CoV-2 PCR Negative *NA* ( 0 10:29 AM) 07/18 [facility] Vital Signs Combined list of inpatient and outpatient Vital Signs from Department of Defense and Veterans Affairs, ranging from 12 months to all on record, depending upon the facility. Vital Sign Value Date Comments Source Temperature Temporal Artery 36.8Cel 09/24/2020 09:01:00 Ambulatory Pharmacy Peripheral Pulse Rate 73bpm 09/24/2020 09:01:00 Ambulatory Pharmacy Respiratory Rate 16br/min 09/24/2020 09:01:00 Ambulatory Pharmacy Systolic Blood Pressure 112mm[Hg] 09/24/2020 09:01:00 Ambulatory Pharmacy Diastolic Blood Pressure 57mm[Hg] 09/24/2020 09:01:00 Ambulatory Pharmacy Temperature Temporal Artery 36.8Cel 09/23/2020 23:31:00 Ambulatory Pharmacy Systolic Blood Pressure 123mm[Hg] 09/23/2020 23:31:00 Ambulatory Pharmacy Diastolic Blood Pressure 78mm[Hg] 09/23/2020 23:31:00 Ambulatory Pharmacy Peripheral Pulse Rate 82bpm 09/23/2020 23:31:00 Ambulatory Pharmacy Respiratory Rate 16br/min 09/23/2020 23:31:00 Ambulatory Pharmacy Temperature Temporal Artery 36.7Cel 09/24/2020 07:05:00 Ambulatory Pharmacy Peripheral Pulse Rate 78bpm 09/24/2020 07:05:00 Ambulatory Pharmacy Respiratory Rate 16br/min 09/24/2020 07:05:00 Ambulatory Pharmacy Systolic Blood Pressure 126mm[Hg] 09/24/2020 07:05:00 Ambulatory Pharmacy Diastolic Blood Pressure 58mm[Hg] 09/24/2020 07:05:00 Ambulatory Pharmacy Temperature Temporal Artery 36.9Cel 09/24/2020 04:29:00 Ambulatory Pharmacy Peripheral Pulse Rate 71bpm 09/24/2020 04:29:00 Ambulatory Pharmacy Respiratory Rate 16br/min 09/24/2020 04:29:00 Ambulatory Pharmacy Systolic Blood Pressure 119mm[Hg] 09/24/2020 04:29:00 Ambulatory Pharmacy Diastolic Blood Pressure 84mm[Hg] 09/24/2020 04:29:00 Ambulatory Pharmacy Encounters Combined list of: 1) Encounters [facility]) Encounters from the Department of Defense facilities going back up to 280 months. Location Location Details Encounter Type Encounter Number Reason For Visit Attending Provider ADM Date DC Date Status Disposition Source MOHAN Morin([facility]) OUTPATIENT [id number] DIEUDONNE COLLAZO 01/11 Released w/o Limitations MOHAN Ewing([facility] at[facility]) MOHAN Morin([facility] ions) OUTPATIENT [id number] DIEUDONNE COLLAZO 03/30 Released w/o Limitations MOHAN Ewing([facility] at[facility]) [facility]) OUTPATIENT [id number] EDOUARD CINTRON 01/17 Released w/o Limitations [facility](Opt ometry [facility]) [facility]( Emergency Room [facility]) OUTPATIENT [id number] lt eye problem 40y/o F 118/68, 77,18,9 7%,98.0 (O) RUSS LOVE 05/10 Released w/o Limitations [facility]) [facility]( Immunizat ions [facility] OUTPATIENT [id number] JUSTINO Benites 07/30 Released w/o Limitations [facility] JUAN D [facility] -[facility](Imm unizati ons [facility]) [facility] JUAN Gt [facility]( Immunizat ions [facility]) OUTPATIENT [id number] flu JIN PARKER 07/08 Released w/o Limitations [facility](Imm unizati ons [facility]) [facility] Gt [facility]( [facility]) OUTPATIENT [id number] SARAH SALGADO 08/07 Released w/o Limitations [facility] D [facility](Opt [facility]metry [facility]) [facility]( Psychiatr ic Clinic) TELE CONSULT [id number] EDGARDO OSPINA 08/12 [facility](Psy chiatri c Clinic[facility]( Occupatio nal Health [facility]) OUTPATIENT [id number] Travel Vacc VIPUL PARKER 08/13 Released w/o Limitations [facility] D [facility](Occ upation al Health [facility]) [facility] JUAN Gt [facility]( Immunizat ions [facility]) OUTPATIENT [id number] TESFAYE VANCE 08/13 Released w/o Limitations [facility](Imm unizati ons [facility]) [facility]( [facility] M01A FP Red) OUTPATIENT [id number] LORNA Wiseman 09/25 Released w/o Limitations [facility]H M01A FP Red) [facility] D [facility]( [facility] M01A FP Red) OUTPATIENT [id number] record TAMI RICK NEGRITA 11/20 Released w/o Limitations [facility]H M01A FP Red) [facility]) OUTPATIENT [id number] PHYSICA L EXAM PER PT RACHEL CORDERO 07/08 Released w/o Limitations [facility]( [facility]) [facility](Im munizatio n Clinic Be) OUTPATIENT [id number] SILVIA SPICER 07/16 Released w/o Limitations [facility]( Immuniz ation Clinic [facility]) [facility] t [facility]) OUTPATIENT [id number] SWOLLEN RIGHT ELBOW PER PT CAROLYN STUART 12/22 Released w/o Limitations [facility]( Int Med Blue [facility]) [facility](Im munizatio n Clinic Be) OUTPATIENT [id number] SILVIA SPICER 05/26 Released w/o Limitations [facility]( Immuniz ation Clinic Be) [facility](In t Med CL E Medical Home [facility]) TELE CONSULT [id number] Possibl e bronchi tis. PCM is ANDREI Johnson 01/20 [facility]( Int Med CL E [facility]) [facility] t Med [facility]) TELE CONSULT [id number] no appt avail same day cough MARIBEL DEJESUS 04/10 [facility]( Int Med [facility]) [facility] t Med [facility]) TELE CONSULT [id number] Palpita tions, pt is concern ed. DION CELAYA V 10/05 [facility]( Int Med Blue Cl [facility]) [facility] t Med CL [facility] Medical Home [facility]) TELE CONSULT [id number] PCM Yvonne muñoz patient request ed to speak with RN call carlee. DION CELAYA V 10/05 [facility]( Int Med CL E Medical Home [facility]) [facility] t Med [facility]) OUTPATIENT [id number] physica l per pt MARIBEL CROCKETT 11/01 Released w/o Limitations [facility]( Int Med [facility]) [facility]) TELE CONSULT [id number] lab results MARIBEL CROCKETT 11/02 [facility] Int [facility]) [facility]) OUTPATIENT [id number] OCONUS SCREENI MATI GLYNN 11/15 Released w/o Limitations [facility]( [facility] ) [facility]( Immunizat ions [facility]) OUTPATIENT [id number] Flu vaccina tion SLOANE VELÁZQUEZ Ashley 04/12 Released w/o Limitations [facility](Imm unizati ons [facility]) [facility]( Immunizat ions [facility]) OUTPATIENT [id number] PPD initial KARELY CYRILANDRE 04/25 Released w/o Limitations [facility] MICHELLE -[facility](Imm unizati ons [facility]) [facility]( Immunizat ions [facility]) OUTPATIENT [id number] PPD read CINTHYA CALI 04/27 Released w/o Limitations [facility] Gt [facility](Imm unizati ons [facility]) [facility] D [facility]( AMH M01A FP Red) OUTPATIENT [id number] rt foot pain NAOMI GABEGLENDA Marrero 06/18 Released w/o Limitations [facility] D VIVIANA -PYONGT AEK(AMH M01A FP Red) IRAM BOYKINIAN Gt VIVIANA-P YONGTAEK( Emergency Room [facility]) OUTPATIENT [id number] AAMIR LOPEZ 06/25 Admitted [facility] JUAN Del Real VIVIANA -PYONGT AEK(Tabatha rgency Room [facility]) IRAM Del Real VIVIANA-P YONGTAEK( Neurology Clinic [facility]) OUTPATIENT [id number] LUE paresth GAMA Thomas 06/26 Immediate Referral IRAM Del Real VIVIANA -PYONGT AEK(Seun rology Clinic [facility]) IRAM Del Real VIVIANA-P YONGTAEK( Immunizat ions [facility]) OUTPATIENT [id number] Flu vaccina ANUPAM Leong 07/03 Released w/o Limitations IRAM BOYKINIAN Gt VIVIANA -PYONGT AEK(Imm unizati ons [facility]) IRAM Del Real VIVIANA-P YONGTAEK( AMH M01A FP Red) OUTPATIENT [id number] finger infecti on MEGA ROBINS 08/03 Released w/o Limitations [facility] J[facility]AN D VIVIANA -PYONGT AEK(AMH M01A FP Red) IRAM BOYKINIAN Gt VIVIANA-P YONGTAEK( AMH M01A FP Red) OUTPATIENT [id number] swollen thyroid GEORGE MELGAR 10/04 Released w/o Limitations [facility] J[facility]AN D VIVIANA -PYONGT AEK(AMH M01A FP Red) IRAM Del Real VIVIANA-P YONGTAEK( Internal Med Clinic [facility]) OUTPATIENT [id number] PALPGREG MAHER 10/10 Released w/o Limitations [facility] JUAN Gt VIVIANA -PYONGT AEK([facility] IRAM Del Real VIVIANA-P YONGTAEK( AMH M01A FP Red) TELE CONSULT [id number] Results GEORGE MELGAR 10/16 IRAM Del Real VIVIANA -PYONGT AEK(AMH M01A FP Red) IRAM Del Real VIVIANA-P YONGTAEK( Surgical Clinic [facility]) OUTPATIENT [id number] NONTOXI C MULTINO DULAR GOITER MARIBEL KHALIL 11/26 Released w/o Limitations IRAM Del Real VIVIANA -PYONGT AEK(Ramez gical Clinic [facility]) IRAM Del Real VIVIANA-P YONGTAEK( Surgical Clinic [facility]) OUTPATIENT [id number] Minor Procedu re MARIBEL KHALIL 12/12 Released w/o Limitations IRAM Del Real VIVIANA -PYONGT AEK([facility]) IRAM Del Real VIVIANA-P YONGTAEK( Surgical Clinic [facility]) OUTPATIENT [id number] follow up MARIBEL KHALIL 01/02 Released w/o Limitations IRAM Del Real VIVIANA -PYONGT AEK(Ramez gical Clinic [facility]) IRAM Del Real VIVIANA-P YONGTAEK( Optometry Clinic [facility]) OUTPATIENT [id number] JULITA Garcia 05/23 Released w/o Limitations IRAM Del Real VIVIANA -PYONGT AEK(Opt ometry Clinic [facility]) IRAM Del Real VIVIANA-P YONGTAEK( Emergency Room [facility]) OUTPATIENT [id number] ISABEL FERNÁNDEZ 06/13 Released w/o Limitations IRAM Del Real VIVIANA -PYONGT AEK(Tabatha rgency Room [facility]) IRAM Del Real VIVIANA-P YONGTAEK( Internal Med Clinic [facility]) TELE CONSULT [id number] Notes Entered by: TERESA MENG 16 Jun 2012 0804 ------- ------- ------- ------- -- Seen in ED GREG GILLESPIE 06/15 IRAM Del Real VIVIANA -PYONGT AEK([facility]) IRAM Del Real VIVIANA-P YONGTAEK( AMH M01A FP Red) OUTPATIENT [id number] knee problem DOMINGA VELÁZQUEZ 07/16 Released with Work/Duty Limitations IRAM Del Real VIVIANA -PYONGT AEK(AMH M01A FP Red) IRAM Del Real VIVIANA-P YONGTAEK( AMH M01A FP Red) OUTPATIENT [id number] right knee pain DOMINGA VELÁZQUEZ 07/31 Released with Work/Duty Limitations IRAM eDl Real VIVIANA -PYONGT AEK(AMH M01A FP Red) IRAM Del Real VIVIANA-P YONGTAEK( Emergency Room [facility]) OUTPATIENT [id number] SAMMARIBEL 08/21 Released w/o Limitations IRAM Del Real VIVIANA -PYONGT AEK(Tabatha rgency Room [facility]) IRAM Del Real VIVIANA-P YONGTAEK( [facility] M01A FP Red) TELE CONSULT [id number] Notes Entered by: TAMI BENJAMIN 10 Sep 2012 0927 ------- ------- ------- ------- -- Mammogr am screeni ng for HEDIS TAMI BENJAMIN 09/10 Referred for Appointment IRAM COURTNEYGOOD -PYONGT AEK(AMH M01A FP Red) IRAM Del Real VIVIANA-P YONGTAEK( [facility] M01A FP Red) TELE CONSULT [id number] Notes Entered by: FELICITA ROBINS 17 Sep 2012 1343 ------- ------- ------- ------- -- MRI result from outside hospita l DOMINGA VELÁZQUEZ 09/17 IRAM Del Real VIVIANA -PYONGT AEK([facility] M01A FP Red) IRAM Del Real VIVIANA-P YONGTAEK( Orthopedi c Clinic [facility]) OUTPATIENT [id number] visit for: adminis trative purpose MANUEL HARRIS 10/23 Released w/o Limitations IRAM Del Real VIVIANA -PYONGT AEK(Ort [facility]) IRAM JUAN D VIVIANA-P YONGTAEK( AMH M01A FP Red) OUTPATIENT [id number] Screen for EFMP DOMIGNA VELÁZQUEZ 11/03 Released w/o Limitations [facility] JUAN D VIVIANA -PYONGT AEK(AMH M01A FP Red) [facility] JUAN D VIVIANA-P YONGTAEK( AMH M01A FP Red) TELE CONSULT [id number] Notes Entered by: FELICITA ROBINS DIANA 10 Nov 2012 1525 ------- ------- ------- ------- -- Request s Lab orders AMBERLY ROBINS 11/10 Referred for Appointment RIAM Del Real VIVIANA -PYONGT AEK(AMH M01A FP Red) IRAM Del Real VIVIANA-P YONGTAEK( AMH M01A FP Red) OUTPATIENT [id number] Right knee problem s AXEL LOTT 11/18 Released w/o Limitations [facility] JUAN Del Real VIVIANA -PYONGT AEK(AMH M01A FP Red) IRAM MARTINEZ D VIVIANA-P YONGTAEK( Physical Therapy [facility]) OUTPATIENT [id number] knee pain HEMALATHA HERBERT 11/27 Released w/o Limitations [facility] JUAN D VIVIANA -PYONGT AEK(Phy sical Therapy [facility]) [facility] JUAN Del Real VIVIANA-P YONGTAEK( AMH M01A FP Red) TELE CONSULT [id number] Notes Entered by: TAMI IRCK 28 Nov 2012 1539 ------- ------- ------- ------- -- Med issue. AXEL LOTT 11/28 IRAM Del Real VIVIANA -PYONGT AEK(AMH M01A FP Red) [facility] JUAN Del Real VIVIANA-P YONGTAEK( AMH M01A FP Red) TELE CONSULT [id number] Notes Entered by: RAYNE ROBERT 05 Dec 2012 0859 ------- ------- ------- ------- -- Remind mammogr am order JAKOBVANEFIDENCIO C 12/04 Referred for Appointment IRAM BOYKINIAN Gt VIVIANA -PYONGT AEK([facility] M01A FP Red) IRAM BOYKINIAN Gt VIVIANA-P YONGTAEK( Physical Therapy [facility]) OUTPATIENT [id number] RT KNEE HEMALATHA HERBERT A 12/25 Released w/o Limitations IRAM BOYKINIAN Gt VIVIANA -PYONGT AEK(Phy sical Therapy [facility]) IRAM BOYKINIAN Gt VIVIANA-P YONGTAEK( [facility] M01A FP Red) TELE CONSULT [id number] Notes Entered by: RAYNE ROBERT 05 Jan 2013 1358 ------- ------- ------- ------- -- Remind mammogr am FIDENCIO ROBERT 01/05 Referred for Appointment IRAM BOYKINIAN Gt VIVIANA -PYONGT AEK([facility] M01A FP Red) IRAM Del Real VIVIANA-P YONGTAEK( [facility] M01A FP Red) TELE CONSULT [id number] Notes Entered by: ARTURO VELÁZQUEZ 15 Jan 2013 0838 ------- ------- ------- ------- -- Thyroid ultraso und AJ THORPE 01/14 Referred for Appointment IRAM BOYKINIAN Gt VIVIANA -PYONGT AEK(AMH M01A FP Red) IRAM Del Real VIVIANA-P YONGTAEK( [facility] M01A FP Red) TELE CONSULT [id number] Notes Entered by: DINESH VELÁZQUEZ 08 Apr 2013 1131 ------- ------- ------- ------- -- Hedis -mammog flaco screeni ng ANKIT VELÁZQUEZ 04/08 Referred for Appointment IRAM BOYKNIIAN Gt VIVIANA -PYONGT AEK(AMH M01A FP Red) MOHAN Morin(AMH F01A [place]) OUTPATIENT [id number] physica l / [id number] LUCY HERNÁNDEZ 08/03 Released w/o Limitations Adrianna Pineda [place], [place](AMH F01A Hannah) Adrianna [facility] MOHAN Lomeli(AMH F01A Hannah) TELE CONSULT [id number] Notes Entered by: GABE BERGMAN 06 Aug 2013 1416 ------- ------- ------- ------- -- lab results LOMAN FAIRCHILD Gt 08/06 Adrianna [facility] MOHAN Zuniga([facility] F01A Hannah) Adrianna [facility] MOHAN Lomeli([facility]) OUTPATIENT [id number] Notes Entered by: CARLOTA MORATAYA 07 Aug 2013 0820 ------- ------- ------- ------- -- CARLOTA Keller 08/07 Released w/o Limitations Adrianna [facility] MOHAN Zuniga([facility]) Adrianna [facility] OUTPATIENT [id number] NOAH Benson 09/17 Released w/o Limitations Adrianna [facility] MOHAN Brannon([facility]) Adrianna [facility] MOHAN Engle([facility] ions) OUTPATIENT [id number] Notes Entered by: CHERI MELENDEZ 17 Sep 2013 1520 ------- ------- ------- ------- -- Evelinen CHERI Hernandez 09/18 Released w/o Limitations Adrianna [facility] MOHAN Brannon([facility]) Ardianna [facility] MOHAN Engle([facility] F01A Hannah) OUTPATIENT [id number] [facility] / [phone] MURPHY DUBOSE 09/21 Released w/o Limitations Adrianna [facility] MOHAN Brannon(AMH F01A Hannah) Adrianna [facility] MOHAN Engle(AMH F01B Adilia) OUTPATIENT [id number]; wwe/YESICA Vu 09/30 [facility]itations [facility] [place] [place] [facility] F01A Hannah) TELE CONSULT [id number] Notes Entered by: HEMALATHA HESS 27 Nov 2013 0845 ------- ------- ------- ------- -- lab results HEMALATHA HAN 11/27 Other Not Elsewhere Classified [facility] F01A [place]) [place] [facility] F01A Hannah) OUTPATIENT [id number] 893,RIN GING IN EARS/DI ZZY PER PT REQUEST HEIDI MANLEY 04/16 Released w/o Limitations [facility] F01A [place]) [facility] F01A [place]) TELE CONSULT [id number] Notes Entered by: Vilma MANLEY 04 May 2014 1328 ------- ------- ------- ------- -- lab results , low vitamin D HEMALATHA HAN 05/04 [facility] hahn([facility] F01A Hannah) [facility] huang([facility] F01A Hannah) TELE CONSULT [id number] Notes Entered by: MYNOR BALLARD 05 May 2014 1335 ------- ------- ------- ------- -- EXTERNA L THYROID ULTRASO UND RESULT MARI ACOSTA 05/05 [facility] hahn([facility] F01A [place]) [facility] wilkerson([facility] F01A [place]) TELE CONSULT [id number] Notes Entered by: MARI ACOSTA 2014 1653 ------- ------- ------- ------- -- Lab Results - HEMALATHA Kaplan 05/12 MOHAN Ewing([facility] F01A [place]) MOHAN Morin([facility]) OUTPATIENT [id number] audiogr am per ent SILVINA GOMEZ 05/21 Released w/o Limitations MOHAN Ewing([facility]) MOHAN Morin([facility]) OUTPATIENT [id number] TINNITU S JAMAAL WANG 06/28 Released w/o Limitations MOHAN Ewing([facility]) MOHAN Morin([facility]iz[facility] ions) OUTPATIENT [id number] Notes Entered by: SA ANA ALVA 01 Jul 2014 0830 ------- ------- ------- ------- -- FADY CAM 07/01 Released w/o Limitations MOHAN Ewing([facility] ations) MOHAN Morin([facility] F01A [place]) OUTPATIENT [id number] [phone],DIS CUSS THYROID ISSUE PER PT ED MATHEW 11/01 Released w/o Limitations MOHAN Ewing([facility] F01A Hannah) MOHAN Morin([facility] F01A [place]) OUTPATIENT [id number] physica l and check up ED MATHEW 11/20 Released w/o Limitations MOHAN Ewing([facility] F01A [place]) MOHAN Morin([facility]) OUTPATIENT [id number] [facility] general adult medical examina tion without abnorma l finding s ROLY BURGESS 12/05 Released w/o Limitations MOHAN Ewing([facility]) MOHAN Morin([facility]) OUTPATIENT [id number] f/u colo paperwo rk for Nov ROLY BURGESS 12/11 Released w/o Limitations Adrianna [facility] MOHAN Brannon([facility]) MOHAN Morin([facility]H F01A Hannah) TELE CONSULT [id number] Notes Entered by: ED MATHEW 20 Dec 2015 1705 ------- ------- ------- ------- -- lab review ED MATHEW 12/20 MOHAN Ewing([facility]H F01A Hannah) MOHAN Morin([facility]H F01A Hannah) OUTPATIENT [id number] right shoulde r pain/ [id number] 89Gaston SADIE BILLINGS 04/11 Released w/o Limitations Adrianna [facility] MOHAN Brannon(AMH F01A [place]) Adrianna [facility] MOHAN Engle([facility]H F01A [place]) TELE CONSULT [id number] Notes Entered by: MARI ACOSTA 2016 1259 ------- ------- ------- ------- -- Labs NOAH CASTLE 05/11 Adrianna [facility] MOHAN Brannon(AMH F01A Hannah) Adrianna [facility] MOHAN Engle(AMH F01A Hannah) TELE CONSULT [id number] Notes Entered by: CONNIE MICHELE 28 Aug 2016 1523 ------- ------- ------- ------- -- CHARI Dobson 08/29 Adrianna [facility] MOHAN Brannon(AMH F01A [place]) Adrianna [facility] MOHAN Engle(AMH F01A Hannah) TELE CONSULT [id number] Notes Entered by: CONNIE MICHELE 27 Nov 2016 1352 ------- ------- ------- ------- -- CHARI Dobson 11/27 Adrianna [facility] MOHAN Brannon([facility] F01A [place]) Adrianna [facility] MOHAN Engle([facility]) TELE CONSULT [id number] Notes Entered by: CONNIE MICHELE 23 Aug 2017 1324 ------- ------- ------- ------- -- CHARI Acharya 08/23 Adrianna [facility] MOHAN Brannon([facility] F01A [place]) MOHAN Morin([facility]) OUTPATIENT [id number] TOE PAIN YANARELIS MEDINA SHELBI 04/10 Released w/o Limitations Adrianna [facility] MOHAN Brannon([facility]) Adrianna [facility] MOHAN Engle([facility]) OUTPATIENT [id number] 5 Notes Entered by: YONI RODAS 24 May 2020 0930 ------- ------- ------- ------- -- contact JOLEEN CARSON 05/24 Released w/o Limitations Adrianna [facility] MOHAN Brannon([facility]) Adrianna [facility] MOHAN Engle([facility] F01B Adilia) TELE CONSULT [id number] 3 Notes Entered by: KAILYN LOAIZA SA R 15 Jun 2020 1505 ------- ------- ------- ------- -- ERIKA: CCS, CoCS, BCS JUANITA GAVIRIA 06/15 Adrianna [facility] MOHAN Brannon([facility] F01B Adilia) Procedures Combined list of: 1) Procedures from Department of Veterans Affairs facilities going back up to thelast 18 months, not all VA non-surgical procedures are included; 2) All procedures from the Department of Defense facilities. Procedure Procedure Type Code Date Perfomer Comments Sourc e No data is provided for this section because a [facility] internal system error occurred when retrieving data. A future request for this document may succe fully include data for this section if the system i ue has been resolved. [facility] Knee Knee region structure (body structure) [id number] [address] [place] [address] Social History Combined list of available smoking, tobacco, and other social history from Department of Defense and Veterans Affairs facilities. Social History Type Response Date Comment Sour e Smoking Status Never (less than 100 in lifetime) 09/23/2020 Ambulatory Pharmacy Female 03/23/2020 Ambulatory Pha rmacy This section is an empty social history section. [facility] Sexual Orientation Ambula tory Pharmacy Gender identity Ambulator y Pharmacy Assessment and Plan Combined list of future care activities from Department of Defense and Veterans Affairs facilities (e.g., assessment and plan notes, appointments, orders, and referrals). Additional future care activities may be listed in the Plan of Care section. Result Assessment and Plan Date Source Assessment and Plan Extracted from:Title : imms Author: ZULEIMA RAMIREZ Date: 01/05/22 1.?Vaccination given Extracted from:Title: immunizations Author: CELIO MERA Date: 06/13/21 Vaccination given 08/06/2024 Ambulatory Pharmacy Functional Status Combined list of recent functional and cognitive assessments recorded at Department of Defense and Veterans Affairs (VA).VA Functional Ector Measurement (FIM) Scale: 1 = Total Assistance (Subject = 0% +), 2 = Maximal Assistance (Subject = 25% +), 3 = Moderate Assistance (Subject = 50% +), 4 = Minimal Assistance (Subject = 75% +), 5 = Supervision, 6 = Modified Ector (Device), 7 = Complete Ector (Timely, Safely). Assessment Date/Time Source Assessment Type Assessment Skill Assessment Score Assessment Details No data available for this section
== END 2024-08-04 09:32 | disposition home or self-care (01) ==
PROVIDERS: PCP Physician Assistant Medical
DX: M19.041 Primary osteoarthritis, right hand (principal)
CPT/HCPCS: 99203

== ENCOUNTER → 2024-08-04 09:08 | Outpatient (BNVA) | payer OTHER, SELFPAY | PROVIDERS: PCP Physician Assistant Medical | DX: M19.041 Primary osteoarthritis, right hand (principal) | CPT/HCPCS: 99202 ==

== ENCOUNTER 2024-10-09 10:29 | Outpatient (RCR) | payer OTHER, SELFPAY ==
--- NOTE | 2024-09-07 14:30 | MHC.OT.OEV ---
[address] [phone] F: [phone] Occupational Therapy Evaluation Patient Name: Tessie Wilkerson Diagnosis: (R)thumb OA Date of Onset: Date of Surgery: Attending Provider: Sergey Patiño Prescribed Treatment: Follow Up Appointment: History of Current Condition: Patient is a 59 y/o right handed female who was referred with a diagnosis of OA. She reports pain at the CMC joint that is sharp with movement such as when opening jars or writing. She did report numbness/tingling. 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 She lives with her and 2 adult children. She enjoys hiking, traveling and reading. 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 [employer] Travels around the world, hikes, reads Living Situation, Family and/or Social Support: Lives with and 2 adult children Current Level of Function and Occupation Self Care, Employment, Leisure: Sleep: WFL Driving: Difficulty turning the wheel Vision: Balance: Pain Assessment Pain Score: 8 Pain Scale Used: Numeric (0 - 10) Pain Location and Description: 0/10 at rest 8/10 during movement sharp Aggravating Factors: writing, pulling, Alleviating Factors: Tylenol Skin and Soft Tissue Assessment Skin and Soft Tissue: Comments: Skin intact, edema present Nerve assessment Ulnar Nerve: Median Nerve: Radial Nerve: Comments: Sensory Assessment Temperature: Light Touch: Proprioception: Vibration: Comments: Edema Assessment Upper Extremity: Lower Extremity: Comments: Dexterity Assessment Dexterity: WNL Comments: Functional Dexterity Test=23.36 Special Tests Comments: AROM(PROM) Strength Cervical Cervical Flexion: Cervical Extension: Cervical Lateral Flexion: Cervical Rotation: Comments: Shoulder Flexion: Extension: Abduction: Internal Rotation: External Rotation: Comments: WFL Flexion: Extension: Abduction: Internal Rotation: External Rotation: Comments: WFL Elbow Flexion: Extension: Pronation: Supination: Comments: WFL Flexion: Extension: Pronation: Supination: Comments: WFL Wrist Flexion: Extension: Ulnar Deviation: Radial Deviation: Comments: WFL Flexion: Extension: Ulnar Deviation: Radial Deviation: Comments: WFL Thumb Thumb CMC Flexion: Thumb MCP Flexion: Thumb IP Flexion: Radial Abduction: Palmar Abduction: Fulton (Kapandji 0-10): Comments: WFL Digits Index MCP: PIP: DIP: Long MCP: PIP: DIP: Ring MCP: PIP: DIP: Small MCP: PIP: DIP: Comments: WFL Gross Grasp: (R)64lbs.; (L)85lbs. Lateral Pinch: 12lbs, Two-Point Pinch: 2lbs. Three-Jaw Angel: 8lbs. Comments: Patient Education Primary Language: Vice President Quality Improvement Required: No Current Knowledge: Teaching Method: Education Needs Identified on Evaluation: How did patient/family demonstrate learning? Barriers to Learning: Readiness for Learning: Who was educated? Comments: Plan of Care Assessment: Based on initial OT evaluation patient presents with pain at the (R)CMC, impaired peanut sorter strength and impaired performance during self care tasks. Due to the documented impairments it is recommended that patient receive a short course of OT in order to decrease pain, increase strength and maintain joint integrity in order to enhance patient's quality of life. Thank you for your referral STG Duration: 2 weeks Short Term Goals: Patient will be (I) with joint protection techniques Patient will increased (R)peanut sorter strength to 70lbs. LTG Duration: 4 weeks Longterm Goals: Patient will be (I) with HEP Frequency and Duration: The patient will be seen 1x a week for 4 weeks Treatment Plan: Therapeutic Exercise Therapeutic Activity Home Exercise Program Splinting Patient Education Edema Control ADL Training Ultrasound NMES Iontophoresis Paraffin Fluidotherapy MHP Cold Packs Joint Mobilization Soft Tissue Mobilization Kinesiotaping Other (see comments) Skilled OT eval and treat Electronically Signed By: JUSTO Buckley/Elida, CLReba Reviewed/agree with student documentation: Therapist: Please sign and return to therapist, Thank you for your referral.
--- NOTE | 2024-10-09 10:58 | MHC.OT.DC ---
[address] [phone] F: [phone] Occupational Therapy Discharge Note Patient Name: Tessie Wilkerson Provider: Sergey Patiño Diagnosis: (R)thumb OA Date of Surgery: Date of Evaluation: 09/04/24 Date of Discharge: Treatments to Date: 5 Cancellations to Date: No Shows to Date: Discharge Status: Achieved Goals Improved Function Independent with HEP Discharge Summary: Patient is discharged from skilled OT as patient has achieved her maximal potential in therapy. She is (I) with her HEP, understands joint protection techniques and report 0/10 pain. Electronically Signed By: Teresa Gillis OTR/L, CLT Reviewed/agree with student documentation: Therapist: Please Sign and return to therapist, thank you for your referral.
== END 2024-10-09 10:58 | disposition home or self-care (01) ==
LOC: HO.OT 10:29
PROVIDERS: PCP Physician Assistant Medical
DX: M19.041 Primary osteoarthritis, right hand (principal)
CPT/HCPCS: 97110; 97140; 97165; 97535

== ENCOUNTER 2025-05-31 08:38 | Outpatient (REF) | payer OTHER, SELFPAY ==
[2025-05-31 11:36] LABS: MANUAL DIFF FLAG NO
[2025-05-31 11:38] LABS: Hematocrit 41.6 % (37.0-47.0); Hemoglobin 13.9 g/dl (12.0-16.0); Imm Gran Abs Auto 0.01 X10*3/uL (0.00-0.03); Imm Gran Pct Auto 0.3 % (0.0-0.4); Lymphocytes Absolute Auto 1.1 X10*3/uL (1.2-4.9); Mean Corpuscular HGB Conc 33.4 g/dl (31.0-35.0); Mean Corpuscular Hemoglobin 29.2 pg (27.0-33.0); Mean Corpuscular Volume 87.4 fL (80.0-98.0); NRBC Abs Auto 0.000 X10*3/uL (0.0-0.012); NRBC Pct Auto 0.0 /100WBC (0.0-0.2); Platelet Count 235 X10*3/uL (160-400); Red Blood Count 4.76 X10*6/uL (4.20-5.50); White Blood Count 3.7 X10*3/uL (4.8-10.8)
[2025-05-31 12:12] LABS: Alanine Aminotransferase 28 U/L (0-31); Albumin Level 4.3 g/dL (3.5-5.0); Alkaline Phosphatase 65 U/L (39-117); Anion Gap 10 (12-20); Aspartate Amino Transferase 31 U/L (5-31); Blood Urea Nitrogen 11 mg/dL (9-16); Calcium 8.8 mg/dL (8.4-10.2); Carbon Dioxide 30 mmol/L (22-29); Chloride 106 mmol/L (96-108); Cholesterol 199 mg/dL (<200); Estimated Glomerular Filt Rate > 60; HDL Cholesterol 47 mg/dL (>40); Potassium 4.4 mmol/L (3.3-5.1); Sodium 142 mmol/L (135-145); Total Protein 7.0 g/dL (6.5-8.0); Triglycerides 173 mg/dL (<150)
[2025-05-31 13:08] LABS: Free T4 (Free Thyroxine) 1.19 ng/dL (0.71-1.85)
== END 2025-05-31 08:39 | disposition home or self-care (01) ==
LOC: HO.WFDLDS 08:38
PROVIDERS: PCP Physician Assistant Medical; Visit Provider Physician Assistant Medical
DX: Z00.00 Encounter for general adult medical examination without abnormal findings (principal); R73.03 Prediabetes; D72.818 Other decreased white blood cell count; R73.9 Hyperglycemia, unspecified; E89.0 Postprocedural hypothyroidism; R09.89 Other specified symptoms and signs involving the circulatory and respiratory systems; Z87.01 Personal history of pneumonia (recurrent)
CPT/HCPCS: 36415; 80053; 80061; 83036; 84439; 84443; 85025; 96127

== ENCOUNTER 2025-05-31 08:38 | Outpatient (AMB) | payer OTHER, SELFPAY ==
--- OUTSIDE RECORDS SUMMARY | 2024-11-18 05:40 | XMS_ITS ---
Author Organization [facility] Address [address] [place] [address] Care Team Providers Care Mathematics Lecturer Name Role Phone Mindy Lorenzo Unavailable [phone] REASON FOR VISIT MENOPAUSAL SX'S Encounters Encounter Location Date Provider Diagnosis [facility] [address] [place] [address] 11/18/2024 Mindy Lorenzo Plan Of Treatment Next Appt Details Provider Name:Mindy kumar, 06/09/2025 08:20:00 AM, [address] [place] [address], [address], [place], [address], Progress Notes * FAITH AVILADOB: 5 (60 yo F)Acc No.[id number]:11/18/2024 Progress Notes Patient: FAITH BERNARD Appointment Provider: Andrzej Lorenzo M.D. :1965 A ge:59 Y S ex:Female Date:11/18/2024 Address:[address] [place], [place] [id number] Subjective: * Chief Complaints: * 1 . MENOPAUSAL SX'S. * Medical History: Objective: * Vitals: Assessment: Plan: * Treatment: * Images: Billing Information: * Visit Code: * Procedure Codes: * Electronic signature of Diana Lorenzo MD on 05/31/2025 at 09:17 AM EDT Sign off status: Pending * Appointment Provider: Andrzej Lorenzo M.D. Date: 0 11/18/2024 Generated for Johnny messina/Ada/Kareem on: 1 09:17 AM EDT
--- NOTE | 2025-05-31 08:45 | A.OFFPC_ITS ---
Vital Signs 05/31/25 08:51 Height 5 ft 10 in Weight 232 lb 4 oz BMI 33.3 BP 102/62 Blood Pressure Location Rt brachial Position Sitting Respiration 15 Pulse 77 Pulse Source Pulse Oximeter Temp 98.2 F Temp Source Temporal Artery Scan Pulse Oximetry (%) 97 Oxygen Delivery Method Room Air Intake Visit Reasons: annual physical Intake Note: Tessie presents in the office today for her annual physical. Allergies tetracycline Allergy (Severe, Verified 05/31/25 08:47) Anaphylaxis oxycodone Adverse Reaction (Intermediate, Verified 05/31/25 08:47) Dizziness Medication List - Last Reconciled 06/01/25 by AMANUEL Vicente estradiol (Minivelle) 1 patch transdermal 2XW progesterone micronized 100 mg PO QAM Synthroid (levothyroxine) 125 mcg PO QAM NS Tobacco use date assessed: 05/31/25 Dental Screening Dental Screen Date: 05/31/25 Did you have a dental visit in the last 12 months?: Yes Did you have a dental problem in the last 6 months where you did not have access to dental care?: No Was dental information given to patient?: Patient has dentist HPI HPI Comments History of Present Illness Details This is a 60-year-old female with a past medical history of postsurgical hypothyroidism, decreased white blood cell count and prediabetes presenting for a physical exam. She is working at the [employer] in [place]. She moved to [place], [place] from [facility] Fall 2022 with her who is in the . Hypothyroidism-patient had thyroidectomy in 2020 for nodules. She does not have a history of thyroid cancer. She takes Synthroid a 125 mcg once daily. She cannot tolerate levothyroxine because it caused fluctuating TSH levels. Decreased WBC-her provider in [place] said she has had mildly decreased white blood cells for awhile, and she was not concerned about it. Her last CBC was normal. We are continuing to monitor this. Prediabetes-patient endorses a history of this for the past 10 years. Last Hga1c is 5.9%. She joined a gym, and she saw the registered dietitian at [facility]. She declines colonoscopy. She has never had one. Denies family history of colon cancer. She did not complete Cologuard last year. Reordered. She saw Dr. Lorenzo, and she has a follow up scheduled next week. I ordered a mammogram and bone density test today. She received flu, COVID and pneumonia vaccines at the [facility]. She has had a cold for the last few weeks. She still has congestion and fatigue. No fevers, chills, productive cough, wheezing, shortness of breath, chest pain or sinus pain. She suspects seasonal allergy symptoms may be contributing to this. ROS: Constitutional: No unexplained weight loss, fevers or chills. +fatigue Eyes: No vision changes, blurry vision, double vision, eye pain, eye redness, eye discharge. ENT: No hearing loss, ear pain, sinus pain or sore throat. Endorses sinus congestion, runny nose. Respiratory: Endorses cough. No purulent sputum, hemoptysis, wheezing or shortness of breath. Cardiovascular: No chest pain, chest pressure or chest discomfort. No palpitations or pedal edema. Gastrointestinal: No anorexia, nausea, vomiting or diarrhea. No abdominal pain or blood in stool. Genitourinary: No dysuria, hematuria, urinary frequency. Neurologic: No headache, dizziness, syncope, unilateral weakness, ataxia, numbness or tingling in the extremities. Musculoskeletal: No muscle pain, back pain, joint pain or swelling. Hematologic/Lymphatics: No bleeding or bruising. No painful lymph nodes. Skin: No rashes. Endocrine: No cold or heat intolerance. No polyuria or polydipsia. Psychiatric: No depression or anxiety. No SI/HI. Physical exam: Constitutional: Alert, in no distress. Head: Normocephalic. Eyes: Pupils are equal, round and reactive to light. Extraocular muscles intact. Ear, Nose and Throat: Canals clear. TMs normal. Nasal mucosa mildly erythematous. Sinuses nontender. No nasal discharge.. No oropharyngeal lesions, erythema, exudates or edema. Neck: Supple, Full range of motion. No lymphadenopathy. Surgical scar from thyroidectomy noted. Respiratory: Clear to auscultation in all lung lala. No dyspnea or tachypnea. Cardiovascular: S1 S2 regular. No murmurs. Gastrointestinal: Abdomen soft, non-tender, non-distended. Normal bowel sounds. No palpable masses. Neurologic: No focal neurological deficits. Symmetric patellar reflexes. Moves all extremities spontaneously. Sensation intact bilaterally. Skin: No rashes. Musculoskeletal: No gross deformities. Normal range of motion. Extremities: Warm and well perfused. No clubbing, cyanosis or edema. Intact peripheral pulses bilaterally. Psychiatric: Normal mood and affect [facility] Medical History (Updated 05/31/25 @ 09:13 by AMANUEL Vicente) Routine physical examination Allergic rhinitis Osteoarthritis of right hand Right hand pain Right wrist pain Menopausal symptoms History of pneumonia Post-surgical hypothyroidism WBC decreased Prediabetes Surgical History (Updated 02/17/24 @ 16:16 by AMANUEL Vicente) History of thyroidectomy History of knee surgery Family History Father Diabetes Cardiovascular disease Family/Other Diabetes High blood pressure Paternal Grandmother Thyroid disease Social History (Updated 05/31/25 @ 08:51 by Park Worrell CMA) Housing: House Alcohol intake: current Patient Tobacco Use Status: Never used Tobacco e-Cigarette/Vaping Use: Never Used Second Hand Smoke Exposure: No service: No Current occupational status: employed 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 1. Little interest or pleasure in doing things: not at all 2. Feeling down, depressed, or hopeless: not at all 3. Trouble falling or staying asleep, or sleeping too much: not at all 4. Feeling tired or having little energy: not at all 5. Poor appetite or overeating: not at all 6. Feeling bad about yourself - or that you are a failure or have let yourself or your family down: not at all 7. Trouble concentrating on things, such as reading the newspaper or watching television: not at all 8. Moving or speaking so slowly that other people could have noticed. Or the opposite - being so fidgety or restless that you have been moving around a lot more than usual: not at all 9. Thoughts that you would be better off or of hurting yourself in some way: not at all Total score: 0 Depression Screening Interpretation: Negative Depression Screening Done: Yes 86039 - PHQ-9 Billing: Yes Source: Developed by Drs. Carmelo Rodriguez, Bethany Gomez, Gilmer Bhagat and colleagues, with an educational cameron from [employer]. Thrive Questionnaire Date Thrive assessed: 05/31/25 I am a: Patient What is your living situation today?: I have a steady place to live Within the past 12 months, did the food you bought not last and you didn't have the money to get more?: Never true Within the past 12 months, did you worry whether your food would run out before you got money to buy more?: Never true Do you have trouble paying for medicines?: No Do you have trouble getting transportation to medical appointments?: No Do you have trouble paying your heating and electricity bill?: No Do you have trouble taking care of your child, family member or friend?: No Do you have trouble with day-to-day activities such as bathing, preparing meals, shopping, managing finances, etc.?: No Are you currently unemployed and looking for a job?: No Are you interested in more education?: No Please select the resources that you would like help with: None Currently or been in a relationship where the following occur: No concerns reported THRIVE Score: 0 AUDIT C Alcohol Use Questionnaire (AUDIT-C) 1. How often do you have a drink containing alcohol?: 2-4 times a month 2. How many drinks containing alcohol do you have on a typical day when you are drinking?: 1 or 2 3. How often do you have six or more drinks on one occasion?: Never Total Score: 2 ADIA-7 AMB Questionnaire ADIA-7 Date ADIA - 7 assessed: 05/31/25 Feeling nervous, anxious, or on edge: 0 = Not at all Not being able to stop or control worryin = Not at all Worrying too much about different things: 0 = Not at all Trouble relaxin = Not at all Being so restless that it is hard to sit still: 0 = Not at all Becoming easily annoyed or irritable: 0 = Not at all Feeling afraid as if something awful might happen: 0 = Not at all Total ADIA-7 score (0-4 normal; 5-9 mild; 10-14 moderate; 15-21 severe): 0 Source: Developed by Drs. Carmelo Rodriguez, Bethany Gomez, Gilmer Bhagat and colleagues, with an educational cameron from [employer]. ADIA-7 Assessment Billing ADIA-7 Assessment Tool: ADIA-7 Assessment 07632 Physical exam (Primary Care) Vital Signs: Last Vital Signs Temp 98.2 F 05/31/25 08:51 Pulse 77 05/31/25 08:51 Resp 15 05/31/25 08:51 BP 102/62 05/31/25 08:51 Pulse Ox 97 05/31/25 08:51 Oxygen Delivery Method Room Air 05/31/25 08:51 BMI result Body Mass Index 33.3 Tobacco/Smoking Status: Tobacco use Status Tobacco use date assessed 05/31/25 05/31/25 08:54 Patient Tobacco Use Status Never used Tobacco 05/31/25 08:51 e-Cigarette/Vaping Use Never Used 05/31/25 08:51 PHQ-9: PHQ-9 Score PHQ-9: Total score 0 05/31/25 09:26 Depression Screening Interpretation: Negative Thrive Assessment: Date of Thrive Assessment Date Thrive assessed 05/31/25 05/31/25 08:47 Currently or been in a relationship where the following occur: No concerns reported Coding Level of Care Code Est Pt Prev Care 40-64y(45389) Diagnoses Routine physical examination Z00.00 Prediabetes R73.03 Other decreased white blood cell (WBC) count D72.818 Leukopenia type: other Post-surgical hypothyroidism E89.0 Symptoms of upper respiratory infection (URI) R09.89 Additional Codes ADIA-7 Assessment Billing - ADIA-7 Assessment Tool: ADIA-7 Assessment 10512 ([id number]) PHQ-9 - 44153 - PHQ-9 Billing: Yes ([id number]) Assessment & Plan Assessment & Plan (1) Routine physical examination: Code(s): Z00.00 - Encounter for general adult medical examination without abnormal findings Category: Medical Plan: Patient is seen today for a routine physical. As part of this visit we reviewed the following issues, which are considered and essential part of preventative health in this age group: - Breast Cancer screening - Annual Elevator Tender exam - Screening for colon cancer - Blood pressure screening - Cholesterol screening - Osteoporosis prevention including calcium/vitamin D intake, weight bearing exercise & smoking cessation - Screening for depression - Education about skin cancer - Recommendations about immunizations - Recommendation of an eye exam - Screening for substance abuse (2) Prediabetes: Code(s): R73.03 - Prediabetes Category: Medical Plan: Continue low carbohydrate, low sugar diet. Exercise regularly. Check hemoglobin A1c. (3) WBC decreased: Code(s): D72.819 - Decreased white blood cell count, unspecified Category: Medical Qualifiers: Leukopenia type: other Qualified Code(s): D72.818 - Other decreased white blood cell count Plan: Repeat with labs. (4) Post-surgical hypothyroidism: Code(s): E89.0 - Postprocedural hypothyroidism Category: Medical Plan: Continue levothyroxine. Check TSH. (5) Symptoms of upper respiratory infection (URI): Code(s): R09.89 - Other specified symptoms and signs involving the circulatory and respiratory systems Plan: She has had symptoms for a couple of weeks now so I did not perform a test for RSV/COVID/influenza as this would not alter the treatment plan at this time since she is out of the window for antivirals. Continue supportive care which was reviewed with the patient. Patient advised to monitor for worsening symptoms that could indicate bacterial infection including sinus pain and purulent nasal discharge, ear pain, fevers or chills, worsening cough, purulent sputum, shortness of breath, wheezing or increased lethargy. If she has worsening respiratory symptoms she was advised to call for orders for a chest x- ray. Plan Follow up in 1 year for annual physical exam.. Orders: Orders Hemoglobin A1c 05/31/25 D72.818 - Other decreased white blood cell count, R73.03 - Prediabetes, R73.9 - Hyperglycemia, unspecified, Z00.00 - Encounter for general adult medical examination without abnormal findings, Z87.01 - Personal history of pneumonia (recurrent) MM screening mammo BI 05/31/25 Z12.31 - Encounter for screening mammogram for malignant neoplasm of breast XR DEXA axial skeleton 05/31/25 Z78.0 - Asymptomatic menopausal state TSH reflex Free T4 05/31/25 D72.818 - Other decreased white blood cell count, R73.03 - Prediabetes, Z00.00 - Encounter for general adult medical examination without abnormal findings, Z87.01 - Personal history of pneumonia (recurrent) Complete Blood Count Auto Diff 05/31/25 D72.818 - Other decreased white blood cell count, R73.03 - Prediabetes, Z00.00 - Encounter for general adult medical examination without abnormal findings, Z87.01 - Personal history of pneumonia (recurrent) Lipid Panel 05/31/25 D72.818 - Other decreased white blood cell count, R73.03 - Prediabetes, Z00.00 - Encounter for general adult medical examination without abnormal findings, Z87.01 - Personal history of pneumonia (recurrent) Comprehensive Met. Panel 05/31/25 D72.818 - Other decreased white blood cell count, R73.03 - Prediabetes, Z00.00 - Encounter for general adult medical examination without abnormal findings, Z87.01 - Personal history of pneumonia (recurrent) Referrals Cologuard Test Z12.11 - Encounter for screening for malignant neoplasm of colon
[2025-05-31 08:51] VITALS: BP 102/62; PULSE 77; RESP 15; TEMP 36.8; O2SAT 97; BMI 33.3
--- OUTSIDE RECORDS SUMMARY | 2025-05-31 09:18 | XMS_ITS | Encounter Summary ---
Author Organization [employer] Address [address] [place] [address] Care Team Providers Care Integration Project Manager Name Role Phone [facility] Primary Care Provider [phone] Inactive/Transferred Primary Care Provider Unava ilable Encounter Details Date Type Department Care Team (Late st Contact Info) Description 12/18/2023 Orders Only [facility] [address] [place], [place] [id number] [place], [place], [facility] [address] [place] [address] Social History Tobacco Use Types Packs/Day Years Used Date Smoking Tobacco: Never Smokeless Tobacco: Never Alcohol Use Standard Drinks/Week Comments Yes 0 (1 standard drink = 0.6 oz pur e alcohol) socially Housing Stability Answer Date Recorded What is your housing situation today? I have jose del angel 12/02/[address] you li ve. Do you have problems with any of the following? None of the above 12/02/2023 Food Insecurity Answer Date Recorded Within the past 12 months, y ou worried that your food would run out before you got money to buy more: Never True 12/02/2023 Within the past 12 months,th e food you bought just didn't last and you didn't have enough money to get more: Never True 03/2024 Transportation Answer Date Recorded In the past 12 months, has l ack of transportation kept you from medical appts, meetings, work or from getting things needed for daily living? No 12/02/2023 Utilities Answer Date Recorded In the past 12 months, has t he electric, gas, oil or water company threatened to shut off services in your home? No 12/02/2023 Depression Answer Date Recorded Patient Health Questionnaire-2 Score 0 12/02/2023 Comments Unknown Sex and Gender Information Value Date Recorded Sex Assigned at Female 10/18/2023 10:42 AM EST Legal Sex Female 10:37 AM EST Gender Identity Female 10/18/2023 10:38 AM EST Sexual Orientation Straight 10/18/2023 10 :42 AM EST documented as of this encounter Plan of Treatment Not on file documented as of this encounter Procedures Procedure Name Priority Date/Time Associated Diagnosis Comments HM PAP/HPV Routine 04/23/2023 2:46 PM EDT BI MAMMOGRAM SCREENING BILATERAL Routine 04/02/2023 2:47 PM EDT LIPID PANEL, STANDARD Routine 02/14/2023 2:45 PM EDT HEMOGLOBIN A1C Routine 02/14/2023 2:45 PM EDT documented in this encounter Results * HM PAP/HPV (04/23/2023 2:46 PM EDT) [facility] HEALTH MAINTENANCE Final Result * BI Mammogram Screening Bilateral (04/02/2023 2:47 PM EDT) Anatomical Region Laterality Modality Breast Bilateral Mammography [facility] IMG BI PROCEDURES Final R esult * Lipid Panel, Standard (02/14/2023 2:45 PM EDT) Blood Venous blood specimen / Unknown [facility] LAB BLOOD ORDERABLES Josie l Result * Hemoglobin A1c (02/14/2023 2:45 PM EDT) Blood Venous blood specimen / Unknown [facility] LAB BLOOD ORDERABLES Josie l Result documented in this encounter Visit Diagnoses Not on filedocumented in this encounter Care Teams Integration Project Manager Relationship Specialty Start Date End Date [facility] [address] [place] [address] PCP - General Family Medicine 10/18/23 01/11/25 Inactive/Transferred PCP - General 01/12/25 documented as of this encounter
--- OUTSIDE RECORDS SUMMARY | 2025-05-31 09:18 | XMS_ITS | Clinical Summary ---
Author Organization [employer] Address [address] [place] [address] [address] [place] [address] Care Team Providers Care Pan Reclaim Processor Name Role Phone Inactive/Transferred Primary Care Provider Unava ilable Allergies Active Allergy Reactions Criticality Noted Date Comments Codeine High 12/02/2023 Tetracycline High 12/02/2023 Medications Synthroid 125 MCG tabletIndications:P ostoperative hypothyroidism Take 1 tablet (125 mcg) by mouth in the morning. Brand name 90 tablet 3 4 Active Active Problems Problem Noted Date Diagnosed Date Prediabetes 12/10/2023 Hypothyroidism 12/02/2023 Class 1 obesity due to exces s calories without serious comorbidity with body mass index (BMI) of 32.0 to 32.9 in adult 12/02/2023 Immunizations Immunization Administration Dates Next Due Moderna Covid-19 Vaccine 12+ 08/26/2023, 07/06/2021,11/17/2020,2020 Moderna Covid-19 Vaccine 6+ Bivalent 01/05/2022 Zoster, Recombinant 02/15/2023 Family History Medical History Relation Name Comments Diabetes Brother Diabetes Father Heart attack Father Hypertension Sister Cancer Neg Hx Relation Name Status Comments Brother Father Mother Sister Social History Tobacco Use Types Packs/Day Years [...] the past 12 months, has t he [employer], gas, oil or water company threatened to shut off services in your home? No 12/02/2023 Depression Answer Date Recorded Patient Health Questionnaire-2 Score 0 12/02/2023 Comments Unknown Sex and Gender Information Value Date Recorded Sex Assigned at Female 10/18/2023 10:42 AM EST Legal Sex Female 10:37 AM EST Gender Identity Female 10/18/2023 10:38 AM EST Sexual Orientation Straight 10/18/2023 10 :42 AM EST Last Filed Vital Signs Vital Sign Reading Time Taken Comments Blood Pressure 127/83 12/02/2023 9:47 AM EDT Pulse 85 12/02/2023 9:47 AM EDT Temperature 36.2 C (97.2 F) 12/02/2023 9:47 AM EDT Respiratory Rate - - Oxygen Saturation 98% 12/02/2023 9:47 AM EDT Inhaled Oxygen Concentration - - Weight 103 kg (228 lb) 12/02/2023 9:47 AM EDT Height 177.8 cm (5' 10 ) 12/02/2023 9:47 AM EDT Body Mass Index 32.71 12/02/2023 9:47 AM EDT Plan of Treatment Health Maintenance Due Date Last Done Comments CT Colonography 1965 Colonoscopy 1965 Colorectal Cancer Screening 1965 FIT DNA/Cologuard 1965 FIT 1965 FOBT 1965 HIV Screening 1965 Sigmoidoscopy 1965 Disability Screening 1965 Alcohol/Substance Use Screening 1977 Hepatitis C Screening 1983 DTaP/Tdap/Td Vaccines (1 - Tdap) 1984 HPV/Cotest 1995 Pneumococcal Vaccine: 50+ Years (1 of 1 - PCV) 2015 Zoster Vaccines (2 of 2) 04/12/2023 02/15/2023 Depression Screening 12/01/2024 12/02/2023, 12/02/19 Diabetes: Hemoglobin A1C 12/01/2024 024, 12/02/2023, 02/14/2023 SDOH Screening 12/01/2024 12/02/2023 Tobacco Screening 12/01/2024 12/02/2023 Mammogram 04/02/2025 04/02/2023 COVID-19 Vaccine ( season) 2025 08/26/2023, 01/05/2022, 07/06/2021, Additional history exists Influenza Vaccine (#1) 2025 Cervical Cancer Screening 04/23/2026 Pap Smear 04/23/2026 04/23/2023 Lipid Panel 12/01/2028 12/02/2023, 02/14/2023 RSV Patients and Patients Aged 60 years or older (1 - 1-dose 75+ series) 2040 HIB Vaccines Aged Out No longer eligi ble based on patient's age to complete this topic HPV Vaccines Aged Out No longer eligi ble based on patient's age to complete this topic Hepatitis A Vaccines Aged Out No long er eligible based on patient's age to complete this topic Hepatitis B Vaccines Aged Out No long er eligible based on patient's age to complete this topic IPV Vaccines Aged Out No longer eligi ble based on patient's age to complete this topic Meningococcal B Vaccine Aged Out No l onger eligible based on patient's age to complete this topic Meningococcal Vaccine Aged Out No duarte becky eligible based on patient's age to complete this topic RSV under 20 months Aged Out No longe r eligible based on patient's age to complete this topic Rotavirus Vaccines Aged Out No longer eligible based on patient's age to complete this topic Procedures Procedure Name Priority Date/Time Associated Diagnosis Comments HEMOGLOBIN A1C Routine 12/02/2023 Class 1 obesity due to excess calories without serious comorbidity with body mass index (BMI) of 32.0 to 32.9 in adult LIPID PANEL, STANDARD Routine 12/02/2023 Screening for lipid disorders HM PAP/HPV Routine 04/23/2023 2:46 PM EDT BI MAMMOGRAM SCREENING BILATERAL Routine 04/02/2023 2:47 PM EDT from Last 3 Months or Most Recently Relevant to Health Maintenance Results * Hemoglobin A1c (12/02/2023) Blood Venous blood specimen / Unknown [facility] LAB BLOOD ORDERABLES Josie l Result Performing Organization Address [facility]/ZIP Co de Phone Number EXTERNAL LAB * Lipid Panel, Standard (12/02/2023) Blood Venous blood specimen / Unknown [facility] LAB BLOOD ORDERABLES Josie l Result Performing Organization Address [facility]/ZIP Co de Phone Number EXTERNAL LAB * HM PAP/HPV (04/23/2023 2:46 PM EDT) [facility] HEALTH MAINTENANCE Final Result * BI Mammogram Screening Bilateral (04/02/2023 2:47 PM EDT) Anatomical Region Laterality Modality Breast Bilateral Mammography [facility] IMG BI PROCEDURES Final R esult from Last 3 Months or Most Recently Relevant to Health Maintenance Insurance [facility] OPEN ACCESS Care Teams Pan Reclaim Processor Relationship Specialty Start Date End Date Inactive/Transferred PCP - General 01/12/25
--- OUTSIDE RECORDS SUMMARY | 2025-05-31 09:18 | XMS_ITS | Clinical Summary ---
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 12/02/2023 Active predniSONE (DELTASONE) 20 MG tablet TAKE 2 TABLETS EVERY DAY BY ORAL ROUTE IN THE MORNING FOR 4 DAYS. 10/21/2023 Active Active Problems No known active problems Social History Tobacco Use Types Packs/Day Years Used Date Smoking Tobacco: Never Smokeless Tobacco: Never Alcohol Use Standard Drinks/Week Comments Yes 0 (1 standard drink = 0.6 oz pur e alcohol) Education Answer Date Recorded Are you interested in more education? Not on lottie e 12/02/2023 Are you concerned about learning? Not on file 12/02/2023 No 12/02/2023 No 12/02/2023 Digital Access Answer Date Recorded No 12/02/2023 No 12/02/2023 Reliable internet access at home? Not on file 12/02/2023 Device with a working camera? Not on file Comments Unknown Sex and Gender Information Value Date Recorded Sex Assigned at Not on file Legal Sex Female 10:58 AM EDT Gender Identity Not on file Sexual Orientation Not on file Last Filed Vital Signs Vital Sign Reading Time Taken Comments Blood Pressure 122/83 12/03/2023 4:41 PM EDT Pulse 81 12/03/2023 4:41 PM EDT Temperature 36.4 C (97.5 F) 12/03/2023 4:41 PM EDT Respiratory Rate 20 12/03/2023 4:41 PM EDT Oxygen Saturation 97% 12/03/2023 4:41 PM EDT Inhaled Oxygen Concentration - - Weight 102.1 kg (225 lb) 12/03/2023 4:41 PM EDT Height 177.8 cm (5' 10 ) 12/03/2023 4:41 PM EDT Body Mass Index 32.28 12/03/2023 4:41 PM EDT Plan of Treatment Health Maintenance Due Date Last Done Comments Adult Td,Tdap Booster 1965 DEPRESSION SCREENING 1977 HEPATITIS C SCREENING 1983 HIV ONE-TIME SCREENING (18-65 YEARS) 1983 PAP SMEAR 1986 MAMMOGRAM 2005 COLOGUARD 2010 COLONOSCOPY 2010 COLORECTAL CANCER SCREENING 2010 FIT TEST 2010 FOBT 2010 SIGMOIDOSCOPY 2010 VIRTUAL COLONOSCOPY 2010 PNEUMOCOCCAL VACCINES (50+ years) (1 of 1 - PCV) 2015 ZOSTER VACCINES (1 of 2) 2015 INFLUENZA VACCINE (#1) 2025 09/14/2023 COVID-19 VACCINE (2024- season) 2025 09/14/2023, 08/26/2023, 01/05/2022, Additional history exists SCREENING FOR DIABETES 12/01/2026 12/02/2023, 2023 LIPID PANEL 12/01/2028 12/02/2023, 12/02/2023 RSV VACCINE (1 - 1-dose 75+ series) 2040 SMOKING STATUS SCREENING (Once After 26 Yrs) Completed 12/03/2023 HEPATITIS A VACCINES Aged Out No long er eligible based on patient's age to complete this topic HIB VACCINES Aged Out No longer eligi ble based on patient's age to complete this topic MENINGOCOCCAL VACCINES (ACWY) Aged Out No longer eligible based on patient's age to complete this topic MENINGOCOCCAL VACCINES (B) Aged Out N o longer eligible based on patient's age to complete this topic Medical Devices Not on file Procedures Procedure Name Priority Date/Time Associated Diagnosis Comments LIPID PANEL Routine 12/02/2023 11:41 AM EDT Class 1 obesity due to excess calories without serious comorbidity with body mass index (BMI) of 32.0 to 32.9 in adult Screening for lipid disorders Post-operative hypothyroidism from Last 3 Months or Most Recently Relevant to Health Maintenance Results * (ABNORMAL) Lipid panel (12/02/2023 11:41 AM EDT) HDL 55 mg/dL [facility] Comment: Interpretation <40 mg/dL: Low HDL cholesterol (major risk factor for CHD) Greater than or equal to 60 mg/dL: High HDL cholesterol ( negative risk factor for CHD) HDL - cholesterol is affected by a number of factors, e.g. smoking, excerise, hormones, sex and age. CHOLESTEROL 166 0 - 240 mg/dL [facility] TRIGLYCERIDES 72 30 - 160 mg/dL [facility] LDL 97 50 - 129 mg/dL [facility] Comment: LDL levels in terms of risk for coronary heart disease: <100 mg/dL: Optimal 100-129 mg/dL: Near or above optimal 130-159 mg/dL: Borderline high 160-189 mg/dL: High >190 mg/dL: Very High CARDIAC RISK RATIO 3.0(L) 3.3 - 4.4 [facility] Blood 12/02/2023 11:4 1 AM EDT 12/02/2023 11:46 AM EDT Izabela Putnam [facility] LAB BLOOD ORDERABLES Final Result [address] [address] from Last 3 Months or Most Recently Relevant to Health Maintenance [facility] Subscriber Plan / Payer (Ef fective 2023-Present) Name:Tessie Wilkerson Relation to Subscriber:Self Name:Tessie Wilkerson Payer ID:[id number] (NAIC) Type:PPO Address: [address] [facility] Subscriber Plan / Payer (Ef fective 2023-Present) Name:Tessie Wilkerson Relation to Subscriber:Self Name:Tessie Wilkerson Payer ID:[id number] (NAIC) Type:PPO Address: [address] [employer] PLAN [facility] Address: [facility] [address] [place] [address] CIG PPO Member Subscriber Plan / Payer (Ef fective 2023-Present) Name:Tessie Wilkerson Relation to Subscriber:Self Name:Tessie Wilkerson Payer ID:[id number] ([facility]) Type:PPO Address: [address] [facility] Address: [address] [address] CIG PPO Member Subscriber Plan / Payer (Ef fective 2023-Present) Name:Tessie Wilkerson Relation to Subscriber:Self Name:Tessie Wilkerson Payer ID:[id number] ([facility]) Type:PPO Address: [address] [facility] Address: [address] [address] [facility] Subscriber Plan / Payer (Ef fective 2023-Present) Name:Tessie Wilkerson Relation to Subscriber:Self Name:Tessie Wilkerson Payer ID:[id number] ([facility]) Type:PPO Address: [address] [facility] Address: [address] [address] CIG PPO Member Subscriber Plan / Payer (Ef fective 2023-Present) Name:Tessie Wilkerson Relation to Subscriber:Self Name:Tessie Wilkerson Payer ID:[id number] ([facility]) Type:PPO Address: [address]AN [facility] Address: [address] [address] Additional Source Comments The information contained in this document represents components of the legal health record. It is not the complete legal health record.[facility]
--- OUTSIDE RECORDS SUMMARY | 2025-05-31 09:18 | XMS_ITS | Patient Health Record ---
Author Organization [facility] Address [address] [place] [id number] Care Team Providers Care Treadle Cut Off Saw Operator Name Role Phone Mindy Lorenzo Unavailable [phone] Allergies Allergen (clinical drug ingredient) Drug/Non Drug Allergy documented on EMR Reaction Allergy Type Onset Date Status codeine Codeine Itchy Throat Drug Allergy Acti ve tetracycline Tetracycline Passes Out Drug Allergy Active Reason For Referral No Information Medications Medication SIG (Take, Route, Frequency, Duration) Notes Start Date End Date Status Prometrium 100 MG 1 capsule at bedtime Orally Once a day; Duration: 90 days 10/19/2024 Active Estradiol 0.0375 MG/24HR 1 patch to skin Transdermal Two times a Week; Duration: 90 days 10/19/2024 Active Synthroid 125 MCG Oral; Duration: 90 Days Active Social History Tobacco Use: Social History Observation Description Date Details (start date - stop date) Never Smoker NA - NA Sexual History Question Answer Notes Had sex in the past 12 months (vaginal, oral, or anal)? Yes with Men only Prevention strategies discussed: Other AUDIT-C (Standard) Question Answer Notes Did you have a drink contain ing alcohol in the past year? Yes How often did you have a dri nk containing alcohol in the past year? 2 to 4 times a month (2 points) How many drinks did you have on a typical day when you were drinking in the past year? 1 or 2 drinks (0 point) How often did you have six o r more drinks on one occasion in the past year? Never (0 point) Points 2 Interpretation Negative Tobacco Control (Standard) Question Answer Notes Tobacco use: Nonsmoker Problems Problem Type SNOMED Code ICD Code Onset Dates Problem Status W/U Status Risk Notes Problem Hypothyroidism (02573065) Hypothyroidism, unspecified (E03.9) Active confirmed Problem Menopause (604187295) Menopausal and female climacteric states (N95.1) Active confirmed Vital Signs Temperature 98.1 degrees Fahrenheit 10/19/2024 Blood pressure diastolic 76 mm Hg 10/19/2024 Height 70 in 10/19/2024 Blood pressure systolic 110 mm Hg 10/19/2024 Weight 232 lbs 10/19/2024 BMI 33.28 kg/m2 10/19/2024 Encounters Encounter Location Date Provider Diagnosis [facility] [address] [place] [address] 10/19/2024 Mindy Lorenzo Encounter for screening mammogram for malignant neoplasm of breast Z12.31 ; Menopausal and female climacteric states N95.1 and Hormone replacement therapy Z79.890 Assessments Encounter Date Diagnosis (ICD Code) Assessment Notes Treatment Notes Treatment Clinical Notes Section Notes 10/19/2024 Encounter for screening mammogram for malignant neoplasm of breast (ICD-10 - Z12.31) REGULAR MAMMOGRAMS AND SBE'S WERE RECOMMENDED. 10/19/2024 Menopausal and female climacteric states (ICD-10 - N95.1) DISCUSSED MENOPAUSE AND SYMPTOMS ASSOCIATED WITH THESE. DISCUSSED [place] OPTIONS INCLUDING HRT, ITS BENEFITS AND RISKS. PAT HAS NO CONTRAINDICATIONS AND ACCEPTS RISKS. RX AND DETAILED INSTRUCTIONS FOR HRT WERE GIVEN. CALL IF NOT BETTER IN A FEW MONTHS. 10/19/2024 Hormone replacement therapy (ICD-10 - Z79.890) SEE PREVIOUS NOTE. Plan Of Treatment Pending Test Test Name Order Date MM Digital Mammo Screening 10/19/2024 Next Appt Details Provider Name:Mindy Chihsolm olimeri, 06/09/2025 08:20:00 AM, [address], [address], [place], [address], Insurance Providers Payer Name Payer Address Payer Phone Subscriber Number Group Number Insured Name Patient Relationship to Insured Coverage Start Date Coverage End Date [facility] [address] [place] [address] [id number] FAITH AVILA Self - patient is the insured [facility] [address] [place] [id number] ROLAN OROSCO Spouse - patient is the spouse of the insured [facility] [employer] [address] [place], [place] [id number] FAITH AVILA Self - patient is the insured Medical (General) History Medical History History ICD Code Hypothyroidism, unspecified E03.9 Surgical History Surgery Date(Month/Year) Tonsillectomy 12/2020 Knee Surgery 1994 Hospitalization History Reason Date(Month/Year) See Surgical Hx 2 Vaginal Deliveries
== END 2025-05-31 09:27 | disposition home or self-care (01) ==
LOC: HO.HMCFM 08:39
PROVIDERS: PCP Physician Assistant Medical; Visit Provider Physician Assistant Medical
DX: Z00.00 Encounter for general adult medical examination without abnormal findings (principal); R73.03 Prediabetes; D72.818 Other decreased white blood cell count; E89.0 Postprocedural hypothyroidism; R09.89 Other specified symptoms and signs involving the circulatory and respiratory systems